=== PATIENT | female | born 1950 | race Caucasian/White ===

== ENCOUNTER 2018-02-17 19:57 | Inpatient (IN) ==
[2018-02-19] MEDS ORDERED: Dextrose Gel 15 GM/37.5 ML TUBE PO PRN ×2 (18:01)
[2018-02-19] MEDS ORDERED: *HR* Dextrose 50 % in Water (Syg) 50 ML SYRINGE IVP PRN (18:01)
[2018-02-19] MEDS ORDERED: D5% in Water 1,000 ML IVC PRN (18:01)
[2018-02-19] MEDS: Sennosides/Docusate Sodium TABLET PO PRN (20:52)
[2018-02-19] MEDS: Insulin LISPRO 300 UNITS/3 ML VIAL SQ SCH (20:53)
[2018-02-19] MEDS: CARBIDOPA PO SCH (20:54)
[2018-02-19] MEDS: LEVODOPA PO SCH (20:54)
[2018-02-19] MEDS: levETIRAcetam 250 MG TABLET PO SCH (20:54)
[2018-02-20] MEDS: *HR* Enoxaparin 40 MG/0.4 ML SYRINGE SQ SCH (05:36)
[2018-02-20 05:43] LABS: Basophils # 0.1 K/mcL (0.0-0.2); Basophils % 1.1 %; Eosinophils # 0.3 K/mcL (0.0-0.6); Eosinophils % 3.8 %; Hematocrit 34.8 % (35.3-44.9); Hemoglobin 11.7 g/dL (11.5-15.4); Immature Granulocytes % 0.5 % (0-4); Lymphocytes % 24.3 %; Mean Corpuscular HGB Conc 33.6 g/dL (31.6-35.5); Mean Corpuscular Hemoglobin 29.2 pg (28.0-33.3); Mean Corpuscular Volume 86.8 fL (83.0-100.0); Mean Platelet Volume 11.4 fL (9.4-12.4); Monocytes # 0.7 K/mcL (0.0-1.3); Monocytes % 8.2 %; Neutrophils # 5.2 K/mcL (1.6-8.9); Platelet Count 163 K/mcL (140-400); Red Blood Count 4.01 M/mcL (3.82-4.97); Red Cell Distribution Width 13.3 % (11.5-14.5); Segmented Neutrophils % 62.1 %
[2018-02-20 06:01] LABS: BUN/Creatinine Ratio 30 (6-26); Blood Urea Nitrogen 29 mg/dL (8-23); Calcium 9.5 mg/dL (8.6-10.3); Carbon Dioxide 24 mEq/L (23-29); Chloride 99 mEq/L (98-107); Glucose 376 mg/dL (70-105); Osmolality,Calculated 295 (280-300); Potassium 4.5 mEq/L (3.5-5.1); Sodium 132 mEq/L (136-145); eGFR For African Americans > 60 (> 60); eGFR For Non-African Americans 56 (> 60)
[2018-02-20 06:15] LABS: Thyroid Stimulating Hormone 1.756 mcIU/mL (0.340-5.600)
[2018-02-20] MEDS: Insulin NPH/REG 70/30 100 UNIT/ML (x5UNIT) SQ SCH (07:55)
[2018-02-20] MEDS: Insulin LISPRO 300 UNITS/3 ML VIAL SQ SCH ×4 (07:55→20:47)
[2018-02-20] MEDS: *HR* Metformin 500 MG TABLET PO SCH ×2 (07:58→16:43)
[2018-02-20] MEDS: Pregabalin 75 MG CAPSULE PO SCH (07:58)
[2018-02-20] MEDS: amLODIPine 5 MG TABLET PO SCH (07:58)
[2018-02-20] MEDS: Aspirin 81 MG TAB.CHEW PO SCH (07:58)
[2018-02-20] MEDS: levETIRAcetam 250 MG TABLET PO SCH ×2 (07:59→20:47)
[2018-02-20] MEDS: CARBIDOPA PO SCH ×2 (07:59→20:48)
[2018-02-20] MEDS: LEVODOPA PO SCH ×2 (07:59→20:48)
[2018-02-21] MEDS: *HR* Enoxaparin 40 MG/0.4 ML SYRINGE SQ SCH (06:07)
[2018-02-21 06:36] LABS: Basophils # 0.1 K/mcL (0.0-0.2); Eosinophils # 0.3 K/mcL (0.0-0.6); Eosinophils % 4.2 %; Hematocrit 35.8 % (35.3-44.9); Hemoglobin 12.2 g/dL (11.5-15.4); Immature Granulocytes % 0.6 % (0-4); Lymphocytes # 2.1 K/mcL (0.6-4.6); Lymphocytes % 26.1 %; Mean Corpuscular HGB Conc 34.1 g/dL (31.6-35.5); Mean Corpuscular Hemoglobin 29.5 pg (28.0-33.3); Mean Corpuscular Volume 86.5 fL (83.0-100.0); Monocytes # 0.6 K/mcL (0.0-1.3); Monocytes % 7.4 %; Neutrophils # 4.8 K/mcL (1.6-8.9); Platelet Count 178 K/mcL (140-400); Red Blood Count 4.14 M/mcL (3.82-4.97); Red Cell Distribution Width 13.3 % (11.5-14.5); Segmented Neutrophils % 60.7 %
[2018-02-21 06:56] LABS: BUN/Creatinine Ratio 33 (6-26); Blood Urea Nitrogen 30 mg/dL (8-23); Calcium 9.8 mg/dL (8.6-10.3); Carbon Dioxide 26 mEq/L (23-29); Chloride 99 mEq/L (98-107); Glucose 342 mg/dL (70-105); Osmolality,Calculated 296 (280-300); Potassium 4.2 mEq/L (3.5-5.1); Sodium 133 mEq/L (136-145); eGFR For African Americans > 60 (> 60); eGFR For Non-African Americans > 60 (> 60)
[2018-02-21] MEDS: Insulin LISPRO 300 UNITS/3 ML VIAL SQ SCH ×4 (08:00→20:40)
[2018-02-21] MEDS: *HR* Metformin 500 MG TABLET PO SCH ×2 (08:07→17:34)
[2018-02-21] MEDS: amLODIPine 5 MG TABLET PO SCH (08:07)
[2018-02-21] MEDS: Pregabalin 75 MG CAPSULE PO SCH (08:07)
[2018-02-21] MEDS: Aspirin 81 MG TAB.CHEW PO SCH (08:07)
[2018-02-21] MEDS: LEVODOPA PO SCH ×2 (08:08→20:41)
[2018-02-21] MEDS: CARBIDOPA PO SCH ×2 (08:08→20:41)
[2018-02-21] MEDS: levETIRAcetam 250 MG TABLET PO SCH ×2 (08:08→20:40)
[2018-02-21] MEDS: Insulin NPH/REG 70/30 100 UNIT/ML (x5UNIT) SQ SCH (11:28)
--- NOTE | 2018-02-21 14:06 | Internal Med Progress Note ---
Date of Encounter: 02/21/18 Time of Encounter: 14:04 - Assessment and plan (1) Diarrhea Current Visit: Yes Status: Acute Assessment and plan: Stool specimen sent for c-diff. will follow for results. Qualifiers: Diarrhea type: unspecified type Qualified Code(s): R19.7 - Diarrhea, unspecified (2) Cerebrovascular accident Current Visit: Yes Status: Acute Assessment and plan: PT/OT/ST to eval and treat. will follow progress. Qualifiers: CVA mechanism: unspecified Qualified Code(s): I63.9 - Cerebral infarction, unspecified (3) Diabetes Current Visit: Yes Status: Chronic Assessment and plan: controlled with current medicaitons. will monitor FSBS Qualifiers: Diabetes mellitus type: type 2 Diabetes mellitus termite treater helper insulin use: with long-term use Diabetes mellitus complication status: without complication Qualified Code(s): E11.9 - Type 2 diabetes mellitus without complications; Z79.4 - termite treater helper (current) use of insulin (4) HTN (hypertension) Current Visit: Yes Status: Chronic Assessment and plan: controlled with current meds. monitor BP Qualifiers: Hypertension type: essential hypertension Qualified Code(s): I10 - Essential (primary) hypertension - Time Spent With Patient less than 15 minutes - Subjective Interval history: Patient participating well with therapy. Max assist with transfers. Several episodes of diarrhea today. Will send stool specimen for C-diff. Denies fever , chills, nausea or vomiting. Denies abdominal pain. Denies pain. - Constitutional Vitals: Temp Pulse Resp BP Pulse Ox 98 F 78 16 107/61 95 02/21/18 07:51 02/21/18 07:51 02/21/18 07:51 02/21/18 07:51 02/21/18 07:51 General appearance: Present: cooperative, A&O X 3, pleasant, no acute distress, answers questions appropriately - Head Head exam: Present: atraumatic, normocephalic - Eye Eye exam: Present: PERRL, conjuntiva pink, sclera anicteric Pupils: Present: PERRL - Neck Neck exam general surgery: Present: supple, trachea midline. Absent: lymphadenopathy - Respiratory Respiratory exam: Present: CTAB. Absent: accessory muscle use, rales, rhonchi, wheezes - Cardiovascular Cardiovascular exam: Present: RRR, +S1, +S2. Absent: diastolic murmur, gallop, rubs, systolic murmur - GI/Abdominal GI/Abdominal exam: Present: normal bowel sounds, soft, no peritoneal signs. Absent: distended, tenderness - Extremities Exam Extremities exam: Present: warm, radial pulses palpable and symmetrical. Absent : calf tenderness, cyanotic, pedal edema - Neurological Exam Neurological exam: Present: CN II-XII intact, oriented X3, no focal deficits. Absent: pronater drift, facial droop, speech deficit - Skin Skin exam: Present: dry, intact Internal Medicine: Result - Labs CBC & Chem 7: 02/21/18 06:20 02/21/18 06:20 Labs: Short CBC 02/21/18 Range/Units 06:20 WBC 7.9 (4.3-11.1) K/mcL Hgb 12.2 (11.5-15.4) g/dL Hct 35.8 (35.3-44.9) % Plt Count 178 (140-400) K/mcL Neutrophils # 4.8 (1.6-8.9) K/mcL [facility] 02/21/18 06:20 Sodium 133 L Potassium 4.2 Chloride 99 Carbon Dioxide 26 BUN 30 H Creatinine 0.92 Glucose 342 H Calcium 9.8 - VTE Documentation of Mechanical Device: Graduated compression elastic hosiery Consult Discharge Plan - Plan Referrals: Quiana Mendez MD [Primary Care Provider] -
[2018-02-22] MEDS: *HR* Enoxaparin 40 MG/0.4 ML SYRINGE SQ SCH (05:06)
[2018-02-22] MEDS: Aspirin 81 MG TAB.CHEW PO SCH (08:40)
[2018-02-22] MEDS: levETIRAcetam 250 MG TABLET PO SCH ×2 (08:40→20:43)
[2018-02-22] MEDS: Pregabalin 75 MG CAPSULE PO SCH (08:40)
[2018-02-22] MEDS: *HR* Metformin 500 MG TABLET PO SCH ×2 (08:40→16:40)
[2018-02-22] MEDS: amLODIPine 5 MG TABLET PO SCH (08:40)
[2018-02-22] MEDS: CARBIDOPA PO SCH ×2 (08:43→20:43)
[2018-02-22] MEDS: LEVODOPA PO SCH ×2 (08:43→20:43)
[2018-02-22] MEDS: Insulin LISPRO 300 UNITS/3 ML VIAL SQ SCH ×4 (08:47→20:44)
[2018-02-22] MEDS: Insulin NPH/REG 70/30 100 UNIT/ML (x5UNIT) SQ SCH ×2 (08:48→16:40)
--- NOTE | 2018-02-22 13:01 | Internal Med Progress Note ---
Date of Encounter: 02/22/18 Time of Encounter: 12:59 - Assessment and plan (1) Diarrhea Current Visit: Yes Status: Acute Assessment and plan: resolved. neg c-diff. Qualifiers: Diarrhea type: unspecified type Qualified Code(s): R19.7 - Diarrhea, unspecified (2) Cerebrovascular accident Current Visit: Yes Status: Acute Assessment and plan: PT/OT/ST to eval and treat. will follow progress. Qualifiers: CVA mechanism: unspecified Qualified Code(s): I63.9 - Cerebral infarction, unspecified (3) Diabetes Current Visit: Yes Status: Chronic Assessment and plan: elevated glucose. will add 70/30 NPH coverage for evening dose in addition to am dose. will monitor FSBS Qualifiers: Diabetes mellitus type: type 2 Diabetes mellitus fdc insulin use: with fdc use Diabetes mellitus complication status: without complication Qualified Code(s): E11.9 - Type 2 diabetes mellitus without complications; Z79.4 - skilled nursing (current) use of insulin (4) HTN (hypertension) Current Visit: Yes Status: Chronic Assessment and plan: controlled with current meds. monitor BP Qualifiers: Hypertension type: essential hypertension Qualified Code(s): I10 - Essential (primary) hypertension - Time Spent With Patient 25 - 35 minutes - Subjective Interval history: Patient participating well with therapy. Max assist with transfers. no reports of diarrhea today. c-diff negative. Denies fever, chills, nausea or vomiting. Denies abdominal pain. Denies pain. glucose elevated to 300-400. will add in 70/30 insulin for evening dose. - Constitutional Vitals: Temp Pulse Resp BP Pulse Ox 98.0 F 77 16 158/88 95 02/22/18 07:30 02/22/18 07:30 02/22/18 07:30 02/22/18 07:30 02/22/18 07:30 General appearance: Present: cooperative, A&O X 3, pleasant, no acute distress, answers questions appropriately Exam: general weakness. - Head Head exam: Present: atraumatic, normocephalic - Eye Eye exam: Present: PERRL, conjuntiva pink, sclera anicteric Pupils: Present: PERRL - Neck Neck exam general surgery: Present: supple, trachea midline. Absent: lymphadenopathy - Respiratory Respiratory exam: Present: CTAB. Absent: accessory muscle use, rales, rhonchi, wheezes - Cardiovascular Cardiovascular exam: Present: RRR, +S1, +S2. Absent: diastolic murmur, gallop, rubs, systolic murmur - GI/Abdominal GI/Abdominal exam: Present: normal bowel sounds, soft, no peritoneal signs. Absent: distended, tenderness - Extremities Exam Extremities exam: Present: warm, radial pulses palpable and symmetrical. Absent : calf tenderness, cyanotic, pedal edema - Neurological Exam Neurological exam: Present: CN II-XII intact, oriented X3, no focal deficits. Absent: pronater drift, facial droop, speech deficit - Skin Skin exam: Present: dry, intact Internal Medicine: Result - Labs CBC & Chem 7: 02/21/18 06:20 02/21/18 06:20 - VTE Documentation of Mechanical Device: Graduated compression elastic hosiery Consult Discharge Plan - Plan Referrals: Quiana Mendez MD [Primary Care Provider] -
[2018-02-23] MEDS: *HR* Enoxaparin 40 MG/0.4 ML SYRINGE SQ SCH (06:27)
[2018-02-23] MEDS: amLODIPine 5 MG TABLET PO SCH (09:06)
[2018-02-23] MEDS: levETIRAcetam 250 MG TABLET PO SCH ×2 (09:06→22:58)
[2018-02-23] MEDS: Aspirin 81 MG TAB.CHEW PO SCH (09:06)
[2018-02-23] MEDS: LEVODOPA PO SCH (09:07)
[2018-02-23] MEDS: CARBIDOPA PO SCH (09:07)
[2018-02-23] MEDS: *HR* Metformin 500 MG TABLET PO SCH ×2 (09:07→17:22)
[2018-02-23] MEDS: Pregabalin 75 MG CAPSULE PO SCH (09:07)
[2018-02-23] MEDS: Insulin LISPRO 300 UNITS/3 ML VIAL SQ SCH ×4 (09:09→22:59)
[2018-02-23] MEDS: Insulin NPH/REG 70/30 100 UNIT/ML (x5UNIT) SQ SCH ×2 (09:11→17:23)
--- NOTE | 2018-02-23 13:15 | Internal Med Progress Note ---
Date of Encounter: 02/23/18 Time of Encounter: 13:13 - Assessment and plan (1) Cerebrovascular accident Current Visit: Yes Status: Acute Assessment and plan: No acute issues. Patient continues with slight left hemiparesis. Continues with mild confusion secondary to parkinsonian dementia. Patient being in restarted on her home medication of Sinemet. Patient to continue with physical therapy which she is reportedly progressing well with. We will continue with current plan of care Qualifiers: CVA mechanism: unspecified Qualified Code(s): I63.9 - Cerebral infarction, unspecified (2) Diabetes Current Visit: Yes Status: Chronic Assessment and plan: No acute issues. Patient's blood glucose has been elevated greater than 250 on multiple fingerstick readings. We will continue with sliding scale insulin coverage. We will review patient's long-acting coverage Qualifiers: Diabetes mellitus type: type 2 Diabetes mellitus longterm insulin use: with longterm use Diabetes mellitus complication status: without complication Qualified Code(s): E11.9 - Type 2 diabetes mellitus without complications; Z79.4 - long-term (current) use of insulin (3) HTN (hypertension) Current Visit: Yes Status: Chronic Assessment and plan: Vital signs stable. We will continue with current medications. Qualifiers: Hypertension type: essential hypertension Qualified Code(s): I10 - Essential (primary) hypertension - Time Spent With Patient less than 15 minutes - Subjective Interval history: Patient appears relaxed and currently denies any discomforts or shortness of breath. Patient slightly confused and has poor historian. - Constitutional Vitals: Temp Pulse Resp BP Pulse Ox 98 F 83 16 139/74 95 02/23/18 07:00 02/23/18 07:00 02/23/18 07:00 02/23/18 07:00 02/23/18 07:00 General appearance: Present: cooperative, A&O X 3, pleasant, no acute distress, answers questions appropriately - Head Head exam: Present: atraumatic, normocephalic - Eye Eye exam: Present: PERRL, conjuntiva pink, sclera anicteric Pupils: Present: PERRL - Neck Neck exam general surgery: Present: supple, trachea midline. Absent: lymphadenopathy - Respiratory Respiratory exam: Present: CTAB. Absent: accessory muscle use, rales, rhonchi, wheezes Additional comments: Lungs sounds are diminished to lower maurer, but otherwise clear to auscultation. Respiratory effort appears relaxed - Cardiovascular Cardiovascular exam: Present: RRR, +S1, +S2. Absent: diastolic murmur, gallop, rubs, systolic murmur - GI/Abdominal GI/Abdominal exam: Present: normal bowel sounds, soft, no peritoneal signs. Absent: distended, tenderness - Extremities Exam Extremities exam: Present: warm, radial pulses palpable and symmetrical. Absent : calf tenderness, cyanotic, pedal edema - Neurological Exam Neurological exam: Present: CN II-XII intact, oriented X3. Absent: pronater drift, facial droop, speech deficit Additional comments: Patient continues to have slight left hemiparesis. Left extremities at 4+/5 and right extremities at 5/5. Patient with slight confusion noted, but has a history of Parkinson dementia - Skin Skin exam: Present: dry, intact Internal Medicine: Result - Labs CBC & Chem 7: 02/21/18 06:20 02/21/18 06:20 - VTE Documentation of Mechanical Device: Graduated compression elastic hosiery Consult Discharge Plan - Plan Referrals: Quiana Mendez MD [Primary Care Provider] -
--- NOTE | 2018-02-23 20:58 | Physcial Medicine-Consult Note ---
Date of Encounter: 02/23/18 Time of Encounter: 20:00 Physical Medicine - AP (1) Cerebrovascular accident Status: Acute Assessment and plan: Good start in therapies Ambulation is mod to max short distance. Propels wheelchair 40'. Dysarthria but easy to understand. Poor endurance, processing, memory and impulse control. Continue therapies Pt is coughin alot during the day and I have a concern for silent aspiration. Will order Modified Barium Swallow ELOS 3-4 weeks. Code(s): I63.9 - Cerebral infarction, unspecified SNOMED Code(s): 134648762 Physical Medicine - HPI - Data of Consult Requesting Physician: Damien Lopez MD Primary Care Provider: Quiana Mendez - Consult Narrative History of present illness: Ms. Sharif is a 67 year old RH female admitted acute with old left CVA right hemiparesis and new right CVA left hemiparesis. difficulty getting out of bed at home. MRI showed right hemispheric infarct and deep white matter/centrum semiovale infarcts. Clinically, Pt. had left sided weakness and slurred speech. She was admitted and stabilized at [facility]. due to her bilateral CVA (one old with residual. one new) she has become dependent for mobility and self care and an admission for rehab is medically necessary. Currently, she complains of BLE numbness and weakness. She became left handed after her old CVA due to RUE weakness and poor motor control. She states her appetite is good and is focused on constipation although she has moved her bowels the last 4 days in a row. She denies pain. CC: Damien Lopez MD Past Med Surg Social Fam HX - Past Medical History Attestation: Yes The following information was validated with the patient. Medical history: CVA, diabetes, GERD, hyperlipidemia, hypertension, thyroid disease Psychiatric history: no psych history - Past Surgical History Surgical History: , cholecystectomy, hysterectomy - Social History Smoking Status: Never smoker Smokeless Tobacco Status: No Alcohol use: none Drug use: none - Family History Mother Adopted: No Age: 85 Family Member Ethnicity: Non- Living Status: Hx Family Cardiac Disorders: Yes Father Family Member Ethnicity: Non- Living Status: Hx Family Cardiac Disorders: Yes (Stroke) Hx Family Respiratory Disorders: No Hx Family Cancer: No Hx Family GI Disorders: No Hx Family Endocrine Disorder: Yes (DM) Hx Family Neuromuscular Disorders: No Hx Family Neurologic Disorders: Yes (CVA) Hx Family HEENT Disorders: No Hx Family Autoimmune Disorders: No Medications and Allergies Carvedilol 12.5 mg PO BID 09/14/15 [History] Clopidogrel Bisulfate [Plavix] 75 mg PO DAILY 09/14/15 [History] Losartan [Cozaar] 100 mg PO DAILY 09/14/15 [History] Pregabalin [Lyrica] 75 mg PO DAILY 09/14/15 [History] Simvastatin [Zocor] 40 mg PO HS 09/14/15 [History] metFORMIN [Glucophage] 1,000 mg PO BIDWM 09/14/15 [History] Aspirin 81 mg PO DAILY tab.chew 11/06/15 [Rx] Insulin NPH Hum/Reg Insulin Hm [Novolin 70-30 100 Unit/ml Vial] 45 unit SQ QPM 03/13/17 [History] Insulin NPH Hum/Reg Insulin Hm [Novolin 70-30 100 Unit/ml Vial] 55 unit SQ QAM 03/13/17 [History] LevETIRAcetam [Keppra] 1,000 mg PO BID 11/25/17 [History] Carbidopa/Levodopa [Carbidopa-Levo ER 25-100 Tab] 1 tab PO BID 02/14/18 [History ] Levothyroxine [Synthroid] 88 mcg PO 0630 #0 tablet 02/19/18 [Rx] Omeprazole [PriLOSEC] 20 mg PO 0630 #30 capsule. 02/19/18 [Rx] Sennosides/Docusate Sodium [Senna Plus] 1 each PO BID PRN #20 tablet 02/19/18 [ Rx] amLODIPine [Norvasc] 10 mg PO DAILY #30 tablet 02/19/18 [Rx] 3 Allergy/AdvReac Type Severity Reaction Status Date / Time levofloxacin [From Levaquin] AdvReac Nausea Verified 02/14/18 22:19 All systems: reviewed and no additional remarkable complaints except as stated ( See HPI and PMH) Physical Medicine - Exam - Constitutional Vitals: Temp Pulse Resp BP Pulse Ox 97.8 F 85 18 131/69 95 02/23/18 19:00 02/23/18 19:00 02/23/18 19:00 02/23/18 19:00 02/23/18 19:00 General appearance: average body habitus, cooperative, no acute distress - Head Head exam: Present: atraumatic, normocephalic - Eye Eye exam: Present: EOMI - ENT ENT exam: Present: mucous membranes moist Additional comments: Tongue protrudes midline. - Neck Neck exam: Present: full ROM - Respiratory Respiratory exam: Present: CTAB - Cardiovascular Cardiovascular exam: Present: RRR. Absent: diastolic murmur, gallop, rubs - GI/Abdominal GI/Abdominal exam: Present: normal bowel sounds, soft - Extremities Exam Extremities exam: Present: full ROM. Absent: calf tenderness, pedal edema Additional comments: Strength 4/5 throughout - Neurological Exam Neurological exam: Present: abnormal gait, alert, CN II-XII intact, oriented X3 - Psychiatric Psychiatric exam: Present: normal affect, normal mood - Skin Skin exam: Present: intact Physical Medicine - Results - Labs CBC & Chem 7: 02/21/18 06:20 02/21/18 06:20 Labs: Hyponatremia. Uncontrolled Diabetes. Consult Discharge Plan - Plan Referrals: Quiana Mendez MD [Primary Care Provider] -
[2018-02-23] MEDS: Carbidopa/Levodopa 25/100 TABLET PO SCH (22:58)
[2018-02-24] MEDS: *HR* Enoxaparin 40 MG/0.4 ML SYRINGE SQ SCH (05:15)
[2018-02-24] MEDS: Insulin LISPRO 300 UNITS/3 ML VIAL SQ SCH ×4 (09:19→21:40)
[2018-02-24] MEDS: Carbidopa/Levodopa 25/100 TABLET PO SCH ×2 (09:52→21:41)
[2018-02-24] MEDS: levETIRAcetam 250 MG TABLET PO SCH ×2 (09:52→21:41)
[2018-02-24] MEDS: amLODIPine 5 MG TABLET PO SCH (09:52)
[2018-02-24] MEDS: *HR* Metformin 500 MG TABLET PO SCH ×2 (09:52→17:39)
[2018-02-24] MEDS: Insulin NPH/REG 70/30 100 UNIT/ML (x5UNIT) SQ SCH ×2 (09:53→18:30)
[2018-02-24] MEDS: Pregabalin 75 MG CAPSULE PO SCH (09:53)
[2018-02-24] MEDS: Aspirin 81 MG TAB.CHEW PO SCH (09:53)
--- NOTE | 2018-02-24 16:03 | Internal Med Progress Note ---
Date of Encounter: 02/24/18 Time of Encounter: 16:01 - Assessment and plan (1) Cerebrovascular accident Current Visit: Yes Status: Acute Assessment and plan: PT/OT/ST to eval and treat. will follow progress. No new neurological deficits Qualifiers: CVA mechanism: unspecified Qualified Code(s): I63.9 - Cerebral infarction, unspecified (2) Diabetes Current Visit: Yes Status: Chronic Assessment and plan: elevated glucose. will add 70/30 NPH coverage for evening dose in addition to am dose. will monitor FSBS Qualifiers: Diabetes mellitus type: type 2 Diabetes mellitus terminal block assembler insulin use: with long-term use Diabetes mellitus complication status: without complication Qualified Code(s): E11.9 - Type 2 diabetes mellitus without complications; Z79.4 - care home (current) use of insulin (3) HTN (hypertension) Current Visit: Yes Status: Chronic Assessment and plan: controlled with current meds. monitor BP Qualifiers: Hypertension type: essential hypertension Qualified Code(s): I10 - Essential (primary) hypertension - Time Spent With Patient 25 - 35 minutes - Subjective Interval history: Patient participating well with therapy. Poor endurance and poor memory. Denies fever, chills, nausea or vomiting. Denies pain. - Constitutional Vitals: Temp Pulse Resp BP Pulse Ox 98.0 F 82 18 149/70 96 02/24/18 09:20 02/24/18 09:20 02/24/18 09:20 02/24/18 09:20 02/24/18 09:20 General appearance: Present: cooperative, A&O X 3, pleasant, no acute distress, answers questions appropriately Exam: Slight dysarthria - Head Head exam: Present: atraumatic, normocephalic - Eye Eye exam: Present: PERRL, conjuntiva pink, sclera anicteric Pupils: Present: PERRL - Neck Neck exam general surgery: Present: supple, trachea midline. Absent: lymphadenopathy - Respiratory Respiratory exam: Present: CTAB. Absent: accessory muscle use, rales, rhonchi, wheezes - Cardiovascular Cardiovascular exam: Present: RRR, +S1, +S2. Absent: diastolic murmur, gallop, rubs, systolic murmur - GI/Abdominal GI/Abdominal exam: Present: normal bowel sounds, soft, no peritoneal signs. Absent: distended, tenderness - Extremities Exam Extremities exam: Present: warm, radial pulses palpable and symmetrical. Absent : calf tenderness, cyanotic, pedal edema - Neurological Exam Neurological exam: Present: CN II-XII intact, oriented X3, no focal deficits. Absent: pronater drift, facial droop, speech deficit - Skin Skin exam: Present: dry, intact Internal Medicine: Result - Labs CBC & Chem 7: 02/21/18 06:20 02/21/18 06:20 - Impressions Impressions Videofluoroscopic Swallow 02/24/18 21:46 IMPRESSION: Swallowing mechanism grossly within normal limits without evidence of aspiration. Please see separate speech pathology report for full discussion of findings and recommendations. D/ / Shashank Santizo MD / Shashank Santizo MD Interpreting Provider: Shashank Santizo MD - VTE Documentation of Mechanical Device: Graduated compression elastic hosiery Consult Discharge Plan - Plan Referrals: Quiana Mendez MD [Primary Care Provider] -
[2018-02-24] MEDS: Sennosides/Docusate Sodium TABLET PO PRN (22:43)
[2018-02-25] MEDS: Sennosides/Docusate Sodium TABLET PO PRN (05:44)
[2018-02-25] MEDS: *HR* Enoxaparin 40 MG/0.4 ML SYRINGE SQ SCH (05:44)
[2018-02-25] MEDS: Pregabalin 75 MG CAPSULE PO SCH (09:47)
[2018-02-25] MEDS: amLODIPine 5 MG TABLET PO SCH (09:47)
[2018-02-25] MEDS: levETIRAcetam 250 MG TABLET PO SCH ×2 (09:47→23:55)
[2018-02-25] MEDS: Aspirin 81 MG TAB.CHEW PO SCH (09:48)
[2018-02-25] MEDS: *HR* Metformin 500 MG TABLET PO SCH ×2 (09:48→17:04)
[2018-02-25] MEDS: Carbidopa/Levodopa 25/100 TABLET PO SCH ×2 (09:48→23:54)
[2018-02-25] MEDS: Insulin LISPRO 300 UNITS/3 ML VIAL SQ SCH ×4 (09:57→23:57)
[2018-02-25] MEDS: Insulin NPH/REG 70/30 100 UNIT/ML (x5UNIT) SQ SCH ×2 (09:59→17:00)
--- NOTE | 2018-02-25 12:28 | Internal Med Progress Note ---
Date of Encounter: 02/25/18 Time of Encounter: 12:24 - Assessment and plan (1) Cerebrovascular accident Current Visit: Yes Status: Acute Qualifiers: CVA mechanism: unspecified Qualified Code(s): I63.9 - Cerebral infarction, unspecified (2) Diabetes Current Visit: Yes Status: Chronic Qualifiers: Diabetes mellitus type: type 2 Diabetes mellitus jail insulin use: with jail use Diabetes mellitus complication status: without complication Qualified Code(s): E11.9 - Type 2 diabetes mellitus without complications; Z79.4 - FDC (current) use of insulin (3) HTN (hypertension) Current Visit: Yes Status: Chronic Qualifiers: Hypertension type: essential hypertension Qualified Code(s): I10 - Essential (primary) hypertension - Subjective Interval history: Patient appears relaxed and currently denies any discomforts or shortness of breath. Patient slightly confused and has poor historian. Patient's glucose remains elevated with todays noon measurement being >500. Patient was medicated late for her morning scheduled 70/30 insulin. - Constitutional Vitals: Temp Pulse Resp BP Pulse Ox 97.7 F 78 16 140/67 94 02/25/18 08:34 02/25/18 08:34 02/25/18 08:34 02/25/18 08:34 02/25/18 08:34 General appearance: Present: cooperative, A&O X 3, pleasant, no acute distress, answers questions appropriately - Head Head exam: Present: atraumatic, normocephalic - Eye Eye exam: Present: PERRL, conjuntiva pink, sclera anicteric Pupils: Present: PERRL - Neck Neck exam general surgery: Present: supple, trachea midline. Absent: lymphadenopathy - Respiratory Respiratory exam: Present: CTAB. Absent: accessory muscle use, rales, rhonchi, wheezes - Cardiovascular Cardiovascular exam: Present: RRR, +S1, +S2. Absent: diastolic murmur, gallop, rubs, systolic murmur - GI/Abdominal GI/Abdominal exam: Present: normal bowel sounds, soft, no peritoneal signs. Absent: distended, tenderness - Extremities Exam Extremities exam: Present: warm, radial pulses palpable and symmetrical. Absent : calf tenderness, cyanotic, pedal edema Additional comments: Patient has bilateral rash type areas to bilateral feet and ankles, which appears to be healing. Area's are at the level of worn socks. - Neurological Exam Neurological exam: Present: CN II-XII intact, oriented X3. Absent: pronater drift, facial droop, speech deficit - Skin Skin exam: Present: dry, intact Internal Medicine: Result - Labs CBC & Chem 7: 02/21/18 06:20 02/21/18 06:20 - VTE Documentation of Mechanical Device: Graduated compression elastic hosiery Consult Discharge Plan - Plan Referrals: Quiana Mendez MD [Primary Care Provider] -
[2018-02-26] MEDS: *HR* Enoxaparin 40 MG/0.4 ML SYRINGE SQ SCH (05:20)
[2018-02-26] MEDS: *HR* Metformin 500 MG TABLET PO SCH ×2 (08:31→17:23)
[2018-02-26] MEDS: Aspirin 81 MG TAB.CHEW PO SCH (08:31)
[2018-02-26] MEDS: levETIRAcetam 250 MG TABLET PO SCH ×2 (08:31→21:50)
[2018-02-26] MEDS: amLODIPine 5 MG TABLET PO SCH (08:31)
[2018-02-26] MEDS: Carbidopa/Levodopa 25/100 TABLET PO SCH ×2 (08:31→21:51)
[2018-02-26] MEDS: Pregabalin 75 MG CAPSULE PO SCH (08:31)
[2018-02-26] MEDS: Insulin NPH/REG 70/30 100 UNIT/ML (x5UNIT) SQ SCH (08:32)
[2018-02-26] MEDS: Insulin LISPRO 300 UNITS/3 ML VIAL SQ SCH ×4 (08:43→21:50)
[2018-02-26] MEDS ORDERED: Insulin NPH/REG 70/30 300 UNIT/3 ML per UNIT SQ ONE ×2 (17:00)
[2018-02-27] MEDS: *HR* Enoxaparin 40 MG/0.4 ML SYRINGE SQ SCH (05:35)
[2018-02-27] MEDS: Insulin LISPRO 300 UNITS/3 ML VIAL SQ SCH ×4 (08:20→21:20)
[2018-02-27] MEDS: Carbidopa/Levodopa 25/100 TABLET PO SCH ×2 (09:26→21:20)
[2018-02-27] MEDS: Pregabalin 75 MG CAPSULE PO SCH (09:27)
[2018-02-27] MEDS: *HR* Metformin 500 MG TABLET PO SCH ×2 (09:27→16:53)
[2018-02-27] MEDS: Aspirin 81 MG TAB.CHEW PO SCH (09:27)
[2018-02-27] MEDS: levETIRAcetam 250 MG TABLET PO SCH ×2 (09:27→23:57)
[2018-02-27] MEDS: amLODIPine 5 MG TABLET PO SCH (09:28)
[2018-02-27] MEDS: Insulin NPH/REG 70/30 100 UNIT/ML (x5UNIT) SQ SCH ×2 (09:37→17:32)
[2018-02-27] MEDS: Melatonin 3 MG TABLET PO PRN (21:20)
[2018-02-28] MEDS: *HR* Enoxaparin 40 MG/0.4 ML SYRINGE SQ SCH (05:49)
[2018-02-28 06:01] LABS: Basophils # 0.1 K/mcL (0.0-0.2); Basophils % 1.2 %; Eosinophils # 0.4 K/mcL (0.0-0.6); Eosinophils % 5.5 %; Hematocrit 31.7 % (35.3-44.9); Hemoglobin 10.7 g/dL (11.5-15.4); Immature Granulocytes % 0.5 % (0-4); Lymphocytes # 2.8 K/mcL (0.6-4.6); Lymphocytes % 37.3 %; Mean Corpuscular HGB Conc 33.8 g/dL (31.6-35.5); Mean Corpuscular Hemoglobin 29.4 pg (28.0-33.3); Mean Corpuscular Volume 87.1 fL (83.0-100.0); Mean Platelet Volume 11.2 fL (9.4-12.4); Monocytes # 0.6 K/mcL (0.0-1.3); Neutrophils # 3.6 K/mcL (1.6-8.9); Platelet Count 161 K/mcL (140-400); Red Blood Count 3.64 M/mcL (3.82-4.97); Segmented Neutrophils % 47.5 %
[2018-02-28 06:19] LABS: BUN/Creatinine Ratio 28 (6-26); Blood Urea Nitrogen 23 mg/dL (8-23); Calcium 9.6 mg/dL (8.6-10.3); Carbon Dioxide 26 mEq/L (23-29); Chloride 105 mEq/L (98-107); Glucose 82 mg/dL (70-105); Osmolality,Calculated 291 (280-300); Potassium 4.3 mEq/L (3.5-5.1); Sodium 139 mEq/L (136-145); eGFR For African Americans > 60 (> 60); eGFR For Non-African Americans > 60 (> 60)
[2018-02-28] MEDS: Insulin LISPRO 300 UNITS/3 ML VIAL SQ SCH ×4 (09:15→20:44)
[2018-02-28] MEDS: levETIRAcetam 250 MG TABLET PO SCH ×2 (10:32→20:35)
[2018-02-28] MEDS: amLODIPine 5 MG TABLET PO SCH (10:33)
[2018-02-28] MEDS: *HR* Metformin 500 MG TABLET PO SCH ×2 (10:33→17:29)
[2018-02-28] MEDS: Pregabalin 75 MG CAPSULE PO SCH (10:33)
[2018-02-28] MEDS: Carbidopa/Levodopa 25/100 TABLET PO SCH ×2 (10:33→20:37)
[2018-02-28] MEDS: Aspirin 81 MG TAB.CHEW PO SCH (10:33)
[2018-02-28] MEDS: Insulin NPH/REG 70/30 100 UNIT/ML (x5UNIT) SQ SCH ×2 (10:43→17:33)
--- NOTE | 2018-02-28 15:46 | Internal Med Progress Note ---
Date of Encounter: 02/28/18 Time of Encounter: 15:45 - Assessment and plan (1) Cerebrovascular accident Current Visit: Yes Status: Acute Assessment and plan: PT/OT/ST to eval and treat. will follow progress. No new neurological deficits Qualifiers: CVA mechanism: unspecified Qualified Code(s): I63.9 - Cerebral infarction, unspecified (2) Diabetes Current Visit: Yes Status: Chronic Assessment and plan: elevated glucose. will add 70/30 NPH coverage for evening dose in addition to am dose. will monitor FSBS Qualifiers: Diabetes mellitus type: type 2 Diabetes mellitus long term care administrator insulin use: with detention use Diabetes mellitus complication status: without complication Qualified Code(s): E11.9 - Type 2 diabetes mellitus without complications; Z79.4 - custodial (current) use of insulin (3) HTN (hypertension) Current Visit: Yes Status: Chronic Assessment and plan: controlled with current meds. monitor BP Qualifiers: Hypertension type: essential hypertension Qualified Code(s): I10 - Essential (primary) hypertension (4) Slow transit constipation Current Visit: Yes Status: Acute Assessment and plan: Mag citrate today. Will follow for results. - Time Spent With Patient less than 15 minutes - Subjective Interval history: Patient participating well with therapy. States bowels have not moved in the past few days. Will have dose of mag citrate today. Denies fever, chills, nausea or vomiting. Denies pain. - Constitutional Vitals: Temp Pulse Resp BP Pulse Ox 97.6 F 68 16 117/71 96 02/28/18 07:26 02/28/18 07:26 02/28/18 07:26 02/28/18 07:26 02/28/18 07:26 General appearance: Present: cooperative, A&O X 3, pleasant, no acute distress, answers questions appropriately - Head Head exam: Present: atraumatic, normocephalic - Eye Eye exam: Present: PERRL, conjuntiva pink, sclera anicteric Pupils: Present: PERRL - Neck Neck exam general surgery: Present: supple, trachea midline. Absent: lymphadenopathy - Respiratory Respiratory exam: Present: CTAB. Absent: accessory muscle use, rales, rhonchi, wheezes - Cardiovascular Cardiovascular exam: Present: RRR, +S1, +S2. Absent: diastolic murmur, gallop, rubs, systolic murmur - GI/Abdominal GI/Abdominal exam: Present: normal bowel sounds, soft, no peritoneal signs. Absent: distended, tenderness - Extremities Exam Extremities exam: Present: warm, radial pulses palpable and symmetrical. Absent : calf tenderness, cyanotic, pedal edema - Neurological Exam Neurological exam: Present: CN II-XII intact, oriented X3, no focal deficits. Absent: pronater drift, facial droop, speech deficit - Skin Skin exam: Present: dry, intact Internal Medicine: Result - Labs CBC & Chem 7: 02/28/18 05:20 02/28/18 05:20 Labs: Short CBC 02/28/18 Range/Units 05:20 WBC 7.5 (4.3-11.1) K/mcL Hgb 10.7 L D (11.5-15.4) g/dL Hct 31.7 L (35.3-44.9) % Plt Count 161 (140-400) K/mcL Neutrophils # 3.6 (1.6-8.9) K/mcL BMP 02/28/18 05:20 Sodium 139 Potassium 4.3 Chloride 105 Carbon Dioxide 26 BUN 23 Creatinine 0.83 Glucose 82 Calcium 9.6 - VTE Documentation of Mechanical Device: Graduated compression elastic hosiery Consult Discharge Plan - Plan Referrals: Quiana Mendez MD [Primary Care Provider] -
--- NOTE | 2018-02-28 18:17 | Physical Med Progress Note ---
Date of Encounter: 02/28/18 Time of Encounter: 17:00 Assessment and Plan (1) Cerebrovascular accident Current Visit: Yes Status: Acute Assessment and plan: Slow progress. Transfers improving Continue rehab. EDC TBD Add senokot for constipation. Qualifiers: CVA mechanism: unspecified Qualified Code(s): I63.9 - Cerebral infarction, unspecified Physical Medicine-PN: Subj Interval history: C/O constipation. no BM in 48hrs. - Constitutional Vitals: Vital Signs Temp Pulse Resp BP Pulse Ox 02/28/18 07:26 97.6 F 68 16 117/71 96 02/27/18 18:59 97.6 F 68 16 124/68 97 Intake and Output 02/28/18 02/28/18 02/28/18 07:59 15:59 23:59 Intake Total 625 / 625 720 / 720 Output Total 250 / 250 Balance 625 / 625 470 / 470 Intake: Oral 625 / 625 720 / 720 Output: Urine 250 / 250 Other: Meal Breakfast Percent of Meal Consumed 100% # Urine Diapers 1 Weight 78.18 kg Blood Glucose* 121 397 224 Patient Weight 02/28/18 23:59 Weight 78.18 kg - Extremities Exam Additional comments: 4 Ext strength good.4-/5 Balance and lowerext. control poor. No CCE - Neurological Exam Additional comments: Bilateral pronator drift. Sensation intact. Oriented to month but not place or year. - Psychiatric Psychiatric exam: Present: normal affect, normal mood - Skin Additional comments: Intact. Physical Medicine-PN: Obj Data - Labs CBC & Chem 7: 02/28/18 05:20 02/28/18 05:20 Labs: Laboratory Results - last 24 hr 02/27/18 02/27/18 02/27/18 07:41 11:28 21:12 WBC RBC Hgb Hct MCV MCH MCHC RDW Plt Count MPV Immature Gran % Seg Neutrophils % Lymphocytes % Monocytes % Eosinophils % Basophils % Neutrophils # Lymphocytes # Monocytes # Eosinophils # Basophils # Sodium Potassium Chloride Carbon Dioxide BUN Creatinine Est GFR ( Amer) Est GFR (Non-Af Amer) BUN/Creatinine Ratio Glucose POC Glucose 298 H 319 H 154 H Calculated Osmolality Calcium 02/28/18 02/28/18 02/28/18 05:20 05:20 07:28 WBC 7.5 RBC 3.64 L Hgb 10.7 L D Hct 31.7 L MCV 87.1 MCH 29.4 MCHC 33.8 RDW 13.0 Plt Count 161 MPV 11.2 Immature Gran % 0.5 Seg Neutrophils % 47.5 Lymphocytes % 37.3 Monocytes % 8.0 Eosinophils % 5.5 Basophils % 1.2 Neutrophils # 3.6 Lymphocytes # 2.8 Monocytes # 0.6 Eosinophils # 0.4 Basophils # 0.1 Sodium 139 Potassium 4.3 Chloride 105 Carbon Dioxide 26 BUN 23 Creatinine 0.83 Est GFR ( Amer) > 60 Est GFR (Non-Af Amer) > 60 BUN/Creatinine Ratio 28 H Glucose 82 POC Glucose 121 H Calculated Osmolality 291 Calcium 9.6 02/28/18 02/28/18 02/28/18 11:38 11:41 16:39 WBC RBC Hgb Hct MCV MCH MCHC RDW Plt Count MPV Immature Gran % Seg Neutrophils % Lymphocytes % Monocytes % Eosinophils % Basophils % Neutrophils # Lymphocytes # Monocytes # Eosinophils # Basophils # Sodium Potassium Chloride Carbon Dioxide BUN Creatinine Est GFR ( Amer) Est GFR (Non-Af Amer) BUN/Creatinine Ratio Glucose POC Glucose 410 H* 397 H 224 H Calculated Osmolality Calcium Anemia, uncontrolled DM - VTE Documentation of Mechanical Device: Graduated compression elastic hosiery Consult Discharge Plan - Plan Referrals: Quiana Mendez MD [Primary Care Provider] -
[2018-02-28] MEDS: Sennosides 8.6 MG TABLET PO SCH (20:36)
[2018-03-01] MEDS: *HR* Enoxaparin 40 MG/0.4 ML SYRINGE SQ SCH (06:12)
[2018-03-01] MEDS: Insulin LISPRO 300 UNITS/3 ML VIAL SQ SCH ×4 (08:18→20:44)
[2018-03-01] MEDS: levETIRAcetam 250 MG TABLET PO SCH ×2 (08:55→20:39)
[2018-03-01] MEDS: Aspirin 81 MG TAB.CHEW PO SCH (08:55)
[2018-03-01] MEDS: Carbidopa/Levodopa 25/100 TABLET PO SCH ×2 (08:56→20:40)
[2018-03-01] MEDS: Insulin NPH/REG 70/30 100 UNIT/ML (x5UNIT) SQ SCH ×2 (08:56→16:43)
[2018-03-01] MEDS: Pregabalin 75 MG CAPSULE PO SCH (08:56)
[2018-03-01] MEDS: amLODIPine 5 MG TABLET PO SCH (08:56)
[2018-03-01] MEDS: *HR* Metformin 500 MG TABLET PO SCH ×2 (08:56→16:44)
--- NOTE | 2018-03-01 11:14 | Internal Med Progress Note ---
Date of Encounter: 03/01/18 Time of Encounter: 11:12 - Assessment and plan (1) Cerebrovascular accident Current Visit: Yes Status: Acute Assessment and plan: PT/OT/ST to eval and treat. will follow progress. No new neurological deficits Qualifiers: CVA mechanism: unspecified Qualified Code(s): I63.9 - Cerebral infarction, unspecified (2) Diabetes Current Visit: Yes Status: Chronic Assessment and plan: Controlled with current medication. will monitor FSBS Qualifiers: Diabetes mellitus type: type 2 Diabetes mellitus half-way insulin use: with terminal operations supervisor use Diabetes mellitus complication status: without complication Qualified Code(s): E11.9 - Type 2 diabetes mellitus without complications; Z79.4 - skilled nursing (current) use of insulin (3) HTN (hypertension) Current Visit: Yes Status: Chronic Assessment and plan: controlled with current meds. monitor BP Qualifiers: Hypertension type: essential hypertension Qualified Code(s): I10 - Essential (primary) hypertension (4) Slow transit constipation Current Visit: Yes Status: Acute Assessment and plan: Improved after mag citrate. - Time Spent With Patient less than 15 minutes - Subjective Interval history: Reports 2 large bowel movements today. After having mag citrate. Patient participating well with therapy. Denies fever, chills, nausea or vomiting. Denies pain. Maintaining appetite and hydration. - Constitutional Vitals: Temp Pulse Resp BP Pulse Ox 98.4 F 70 16 133/68 96 03/01/18 07:07 03/01/18 07:07 03/01/18 07:07 03/01/18 07:07 03/01/18 07:07 General appearance: Present: cooperative, A&O X 3, pleasant, no acute distress, answers questions appropriately Exam: Gen. weakness - Head Head exam: Present: atraumatic, normocephalic - Eye Eye exam: Present: PERRL, conjuntiva pink, sclera anicteric Pupils: Present: PERRL - Neck Neck exam general surgery: Present: supple, trachea midline. Absent: lymphadenopathy - Respiratory Respiratory exam: Present: CTAB. Absent: accessory muscle use, rales, rhonchi, wheezes - Cardiovascular Cardiovascular exam: Present: RRR, +S1, +S2. Absent: diastolic murmur, gallop, rubs, systolic murmur - GI/Abdominal GI/Abdominal exam: Present: normal bowel sounds, soft, no peritoneal signs. Absent: distended, tenderness - Extremities Exam Extremities exam: Present: warm, radial pulses palpable and symmetrical. Absent : calf tenderness, cyanotic, pedal edema - Neurological Exam Neurological exam: Present: CN II-XII intact, oriented X3, no focal deficits. Absent: pronater drift, facial droop, speech deficit - Skin Skin exam: Present: dry, intact Internal Medicine: Result - Labs CBC & Chem 7: 02/28/18 05:20 02/28/18 05:20 - VTE Documentation of Mechanical Device: Graduated compression elastic hosiery Consult Discharge Plan - Plan Referrals: Quiana Mendez MD [Primary Care Provider] -
[2018-03-01] MEDS: Sennosides 8.6 MG TABLET PO SCH (20:49)
[2018-03-01] MEDS: traMADol 50 MG TABLET PO PRN (22:38)
[2018-03-02] MEDS: *HR* Enoxaparin 40 MG/0.4 ML SYRINGE SQ SCH (05:48)
[2018-03-02] MEDS: Insulin LISPRO 300 UNITS/3 ML VIAL SQ SCH ×4 (08:05→20:38)
[2018-03-02] MEDS: levETIRAcetam 250 MG TABLET PO SCH ×2 (08:06→19:54)
[2018-03-02] MEDS: Insulin NPH/REG 70/30 100 UNIT/ML (x5UNIT) SQ SCH ×2 (08:06→17:05)
[2018-03-02] MEDS: Aspirin 81 MG TAB.CHEW PO SCH (08:06)
[2018-03-02] MEDS: amLODIPine 5 MG TABLET PO SCH (08:07)
[2018-03-02] MEDS: Carbidopa/Levodopa 25/100 TABLET PO SCH ×2 (08:07→19:54)
[2018-03-02] MEDS: *HR* Metformin 500 MG TABLET PO SCH ×2 (08:07→17:07)
[2018-03-02] MEDS: Pregabalin 75 MG CAPSULE PO SCH (08:08)
--- NOTE | 2018-03-02 09:37 | Internal Med Progress Note ---
Date of Encounter: 03/02/18 Time of Encounter: 09:31 - Assessment and plan (1) Cerebrovascular accident Current Visit: Yes Status: Acute Assessment and plan: PT/OT/ST to eval and treat. will follow progress. No new neurological deficits Qualifiers: CVA mechanism: unspecified Qualified Code(s): I63.9 - Cerebral infarction, unspecified (2) Diabetes Current Visit: Yes Status: Chronic Assessment and plan: Controlled with current medication. will monitor FSBS Qualifiers: Diabetes mellitus type: type 2 Diabetes mellitus correction insulin use: with intermediate school teacher use Diabetes mellitus complication status: without complication Qualified Code(s): E11.9 - Type 2 diabetes mellitus without complications; Z79.4 - shelter (current) use of insulin (3) HTN (hypertension) Current Visit: Yes Status: Chronic Assessment and plan: controlled with current meds. monitor BP Qualifiers: Hypertension type: essential hypertension Qualified Code(s): I10 - Essential (primary) hypertension (4) Nausea Current Visit: Yes Status: Acute Assessment and plan: zofran 4 mg now. will monitor for effectiveness. - Time Spent With Patient less than 15 minutes - Subjective Interval history: Patient participating well with therapy. Complaining of nausea this morning. No vomiting. Will order Zofran .Denies fever, chills. Denies pain. Maintaining appetite and hydration. - Constitutional Vitals: Temp Pulse Resp BP Pulse Ox 98.1 F 75 16 137/69 95 03/02/18 07:15 03/02/18 07:15 03/02/18 07:15 03/02/18 07:15 03/02/18 07:15 General appearance: Present: cooperative, A&O X 3, pleasant, no acute distress, answers questions appropriately - Head Head exam: Present: atraumatic, normocephalic - Eye Eye exam: Present: PERRL, conjuntiva pink, sclera anicteric Pupils: Present: PERRL - Neck Neck exam general surgery: Present: supple, trachea midline. Absent: lymphadenopathy - Respiratory Respiratory exam: Present: CTAB. Absent: accessory muscle use, rales, rhonchi, wheezes - Cardiovascular Cardiovascular exam: Present: RRR, +S1, +S2. Absent: diastolic murmur, gallop, rubs, systolic murmur - GI/Abdominal GI/Abdominal exam: Present: normal bowel sounds, soft, no peritoneal signs. Absent: distended, tenderness - Extremities Exam Extremities exam: Present: warm, radial pulses palpable and symmetrical. Absent : calf tenderness, cyanotic, pedal edema - Neurological Exam Neurological exam: Present: CN II-XII intact, oriented X3, no focal deficits. Absent: pronater drift, facial droop, speech deficit - Skin Skin exam: Present: dry, intact Internal Medicine: Result - Labs CBC & Chem 7: 02/28/18 05:20 02/28/18 05:20 - VTE Documentation of Mechanical Device: Graduated compression elastic hosiery Consult Discharge Plan - Plan Referrals: Quiana Mendez MD [Primary Care Provider] -
[2018-03-02] MEDS: Ondansetron ODT 4 MG TAB.RAPDIS SL PRN (09:49)
[2018-03-02] MEDS: Melatonin 3 MG TABLET PO PRN (19:54)
[2018-03-02] MEDS: Sennosides 8.6 MG TABLET PO SCH (19:54)
[2018-03-03] MEDS: *HR* Enoxaparin 40 MG/0.4 ML SYRINGE SQ SCH (05:19)
[2018-03-03] MEDS: amLODIPine 5 MG TABLET PO SCH (10:13)
[2018-03-03] MEDS: Carbidopa/Levodopa 25/100 TABLET PO SCH ×2 (10:14→19:56)
[2018-03-03] MEDS: Pregabalin 75 MG CAPSULE PO SCH (10:14)
[2018-03-03] MEDS: Aspirin 81 MG TAB.CHEW PO SCH (10:14)
[2018-03-03] MEDS: levETIRAcetam 250 MG TABLET PO SCH ×2 (10:14→19:56)
[2018-03-03] MEDS: Insulin LISPRO 300 UNITS/3 ML VIAL SQ SCH ×4 (10:15→20:41)
[2018-03-03] MEDS: *HR* Metformin 500 MG TABLET PO SCH ×2 (10:15→17:04)
[2018-03-03] MEDS: Insulin NPH/REG 70/30 100 UNIT/ML (x5UNIT) SQ SCH ×2 (10:46→17:44)
--- NOTE | 2018-03-03 10:53 | Internal Med Progress Note ---
Date of Encounter: 02/20/18 Time of Encounter: 21:45 - Assessment and plan (1) Cerebrovascular accident Current Visit: Yes Status: Acute Assessment and plan: We will resume therapies as planned. No acute issues. Qualifiers: CVA mechanism: unspecified Qualified Code(s): I63.9 - Cerebral infarction, unspecified (2) Diabetes Current Visit: Yes Status: Chronic Assessment and plan: Clinically stable though some elevated readings. Will continue to follow and use sliding scale insulin. Qualifiers: Diabetes mellitus type: type 2 Diabetes mellitus intermediate manager insulin use: with group home use Diabetes mellitus complication status: without complication Qualified Code(s): E11.9 - Type 2 diabetes mellitus without complications; Z79.4 - buttermaker (current) use of insulin (3) HTN (hypertension) Current Visit: Yes Status: Chronic Assessment and plan: Clinically stable. We will continue home regimen and follow. Qualifiers: Hypertension type: essential hypertension Qualified Code(s): I10 - Essential (primary) hypertension (4) HLD (hyperlipidemia) Current Visit: No Status: Chronic Assessment and plan: Clinically stable. We will continue home regimen and follow. Qualifiers: Hyperlipidemia type: pure hypercholesterolemia Qualified Code(s): E78.00 - Pure hypercholesterolemia, unspecified; E78.0 - Pure hypercholesterolemia (5) Acute on chronic renal insufficiency Current Visit: No Status: Acute - Subjective Interval history: Patient is without complaint. No acute issues. Has been progressing mostly day and is willing to undergo therapies, tomorrow. Patient has no complaint of chest discomfort, dyspnea, orthopnea, palpitations, nausea or vomiting, constipation or diarrhea, other changes in bowel habits, difficulty with urination, rash or itching, or other new complaints, except as mentioned above. Review of systems is otherwise negative. - Constitutional Vitals: Temp Pulse Resp BP Pulse Ox General appearance: Present: cooperative, pleasant, answers questions appropriately Exam: Examination: (Except as mentioned above): General: In no apparent distress. Alert and oriented 3. Nondiaphoretic. Head: Atraumatic and normocephalic. Respiratory: No use of accessory muscles. Lungs are clear throughout. Normal airflow. Cardiovascular: Regular rate and rhythm without murmur appreciated. Abdomen: Bowel sounds are normal. No hepatosplenomegaly mass or tenderness appreciated. Obese and therefore difficult to palpate deeply. Extremities: No cyanosis clubbing or edema. Skin: Warm and non-diaphoretic with no new lesions noted. Mild hemiparesis, as before. Internal Medicine: Result - Labs CBC & Chem 7: 02/28/18 05:20 02/28/18 05:20 - VTE Documentation of Mechanical Device: Graduated compression elastic hosiery Consult Discharge Plan - Plan Referrals: Quiana Mendez MD [Primary Care Provider] -
--- NOTE | 2018-03-03 11:00 | Internal Med Progress Note ---
Date of Encounter: 03/03/18 Time of Encounter: 10:57 - Assessment and plan (1) Cerebrovascular accident Current Visit: Yes Status: Acute Assessment and plan: No acute issues. Patient continues with slight left hemiparesis, which has improved. Continues with mild confusion secondary to parkinsonian dementia. Patient to continue with physical therapy which she is reportedly progressing well with. We will continue with current plan of care Qualifiers: Qualified Code(s): I63.9 - Cerebral infarction, unspecified (2) Diabetes Current Visit: Yes Status: Chronic Assessment and plan: No acute issues. Patient's blood glucose has improved over the last week on fingerstick readings. We will continue with sliding scale insulin coverage. We will review patient's long-acting coverage Qualifiers: Qualified Code(s): E11.9 - Type 2 diabetes mellitus without complications; Z79.4 - alf (current) use of insulin (3) HTN (hypertension) Current Visit: Yes Status: Chronic Assessment and plan: Vital signs stable. We will continue with current medications. Qualifiers: Qualified Code(s): I10 - Essential (primary) hypertension - Time Spent With Patient less than 15 minutes - Subjective Interval history: Patient appears relaxed and currently denies any discomforts or shortness of breath. Patient slightly confused and has poor historian. - Constitutional Vitals: Temp Pulse Resp BP Pulse Ox 98.7 F 68 18 118/50 97 03/03/18 07:22 03/03/18 07:22 03/03/18 07:22 03/03/18 07:22 03/03/18 07:22 General appearance: Present: cooperative, A&O X 2, pleasant, answers questions appropriately Exam: Patient is confused to time. - Head Head exam: Present: atraumatic, normocephalic - Eye Eye exam: Present: PERRL, conjuntiva pink, sclera anicteric Pupils: Present: PERRL - Neck Neck exam general surgery: Present: supple, trachea midline. Absent: lymphadenopathy - Respiratory Respiratory exam: Present: CTAB. Absent: accessory muscle use, rales, rhonchi, wheezes - Cardiovascular Cardiovascular exam: Present: RRR, +S1, +S2. Absent: diastolic murmur, gallop, rubs, systolic murmur - GI/Abdominal GI/Abdominal exam: Present: normal bowel sounds, soft, no peritoneal signs. Absent: distended, tenderness - Extremities Exam Extremities exam: Present: warm, radial pulses palpable and symmetrical. Absent : calf tenderness, cyanotic, pedal edema - Neurological Exam Neurological exam: Present: CN II-XII intact, oriented X3. Absent: pronater drift, facial droop, speech deficit Additional comments: Patient continues with left hemiparesis. RE 5/5 and LE +4/5 for MS. Remains slightly confused, but history of dementia - Skin Skin exam: Present: dry, intact Internal Medicine: Result - Labs CBC & Chem 7: 02/28/18 05:20 02/28/18 05:20 - VTE Documentation of Mechanical Device: Graduated compression elastic hosiery Consult Discharge Plan - Plan Referrals: Quiana Mendez MD [Primary Care Provider] -
--- NOTE | 2018-03-03 11:13 | Internal Med History&Physical ---
Date of Encounter: 02/20/18 Time of Encounter: 21:50 Assessment and Plan (1) Cerebrovascular accident Current visit: Yes Status: Acute We will use occupational, speech, physical therapy and consult physical medicine. Will begin therapies tomorrow. Qualifiers: CVA mechanism: unspecified Qualified Code(s): I63.9 - Cerebral infarction, unspecified (2) Diabetes Current visit: Yes Status: Chronic We will continue current regimen as at home, discussing medications with family. Will use sliding scale insulin, as well. Qualifiers: Diabetes mellitus type: type 2 Diabetes mellitus senior living insulin use: with intermodal owner operator truck driver use Diabetes mellitus complication detail: with autonomic neuropathy Qualified Code(s): E11.43 - Type 2 diabetes mellitus with diabetic autonomic (poly)neuropathy; Z79.4 - jail (current) use of insulin (3) HTN (hypertension) Current visit: Yes Status: Chronic Clinically stable. Will use home regimen and follow periodically. Qualifiers: Hypertension type: essential hypertension Qualified Code(s): I10 - Essential (primary) hypertension (4) HLD (hyperlipidemia) Current visit: No Status: Chronic Clinically stable. We will continue home regimen and follow. Qualifiers: Hyperlipidemia type: pure hypercholesterolemia Qualified Code(s): E78.00 - Pure hypercholesterolemia, unspecified; E78.0 - Pure hypercholesterolemia (5) Acute on chronic renal insufficiency Current visit: No Status: Acute We will follow with laboratory and avoid medications that might worsen renal insufficiency. (6) Partial seizure disorder Current visit: No Status: Chronic Poorly described per patient. We will keep her in seizure precautions. (7) Parkinsonism Current visit: Yes Status: Acute This is poorly described per patient but she is on carbidopa levodopa and will continue. Follow. Qualifiers: Parkinsonism type: unspecified Qualified Code(s): G20 - Parkinson's disease (8) Diarrhea Current visit: Yes Status: Acute This is apparently been going on for several days but resolving, per patient. Associated with nausea but this has improved. Qualifiers: Diarrhea type: unspecified type Qualified Code(s): R19.7 - Diarrhea, unspecified (9) Hypothyroidism Current visit: Yes Status: Acute Per home medications, only. Will follow. Clinically stable. Qualifiers: Hypothyroidism type: unspecified Qualified Code(s): E03.9 - Hypothyroidism , unspecified Internal Medicine - H&P: HPI Chief complaint: Recent stroke with weakness. Admitted From: Hospital to Hospital Transfer Plans for Post Hospital Care: Home History of present illness: For schedule and/or computer reasons, this note is a late entry. Patient was seen on the date of the initial note. Ms. Sharif is a 67 year old female with history of CVA with mild residual weakness, atypical seizures treated with Keppra, hypothyroidism GERD treated with a PPI, vascular parkinsonism, poorly characterized congestive heart failure , renal insufficiency, diabetes type II with neuropathy, hypertension, and hyperlipidemia who had a recent stroke. Apparently, on February 15, 2018, she had a problem with her legs giving out. History is obtained from the record and from patient. She was taken to [facility] and was treated for stroke there. While there, she had nausea and occasional vomiting. She also had 4 episodes of diarrhea the first day and 2-4 episodes for several days after but was not tested for C. difficile. She is transferred here for therapies, after her stroke and to return her to full functional activity. Medications are reviewed with patient but she is frequently not very aware of what medication she is taking. Most of her medications information comes from transfer records. She lives at home with , does not smoke, does not drink alcohol. She is not actively working. She has not had a seizure for several years. She has her own teeth and has several mandibular teeth that are in poor repair but otherwise, no acute review of systems issues, except as above. Patient has no complaint of chest discomfort, dyspnea, orthopnea, palpitations, nausea or vomiting, constipation or diarrhea, other changes in bowel habits, difficulty with urination, rash or itching, or other new complaints, except as mentioned above. Review of systems is otherwise negative. Past Med Surg Social Fam HX - Past Medical History Medical history: CVA, diabetes, GERD, hyperlipidemia, hypertension, thyroid disease Psychiatric history: no psych history - Past Surgical History Surgical History: , cholecystectomy, hysterectomy - Social History Smoking Status: Never smoker Smokeless Tobacco Status: No Alcohol use: none Drug use: none - Family History Mother Adopted: No Age: 85 Family Member Ethnicity: Non- Living Status: Hx Family Cardiac Disorders: Yes Father Family Member Ethnicity: Non- Living Status: Hx Family Cardiac Disorders: Yes (Stroke) Hx Family Respiratory Disorders: No Hx Family Cancer: No Hx Family GI Disorders: No Hx Family Endocrine Disorder: Yes (DM) Hx Family Neuromuscular Disorders: No Hx Family Neurologic Disorders: Yes (CVA) Hx Family HEENT Disorders: No Hx Family Autoimmune Disorders: No Internal Medicine - H&P: Meds Carvedilol 12.5 mg PO BID 09/14/15 [History] Clopidogrel Bisulfate [Plavix] 75 mg PO DAILY 09/14/15 [History] Losartan [Cozaar] 100 mg PO DAILY 09/14/15 [History] Pregabalin [Lyrica] 75 mg PO DAILY 09/14/15 [History] Simvastatin [Zocor] 40 mg PO HS 09/14/15 [History] metFORMIN [Glucophage] 1,000 mg PO BIDWM 09/14/15 [History] Aspirin 81 mg PO DAILY tab.chew 11/06/15 [Rx] Insulin NPH Hum/Reg Insulin Hm [Novolin 70-30 100 Unit/ml Vial] 45 unit SQ QPM 03/13/17 [History] Insulin NPH Hum/Reg Insulin Hm [Novolin 70-30 100 Unit/ml Vial] 55 unit SQ QAM 03/13/17 [History] LevETIRAcetam [Keppra] 1,000 mg PO BID 11/25/17 [History] Carbidopa/Levodopa [Carbidopa-Levo ER 25-100 Tab] 1 tab PO BID 02/14/18 [History ] Levothyroxine [Synthroid] 88 mcg PO 0630 #0 tablet 02/19/18 [Rx] Omeprazole [PriLOSEC] 20 mg PO 0630 #30 capsule. 02/19/18 [Rx] Sennosides/Docusate Sodium [Senna Plus] 1 each PO BID PRN #20 tablet 02/19/18 [ Rx] amLODIPine [Norvasc] 10 mg PO DAILY #30 tablet 02/19/18 [Rx] 3 Allergy/AdvReac Type Severity Reaction Status Date / Time levofloxacin [From Levaquin] AdvReac Nausea Verified 02/14/18 22:19 All Systems PM: A 10-system review of systems was performed and is negative for pertinent findings except as documented above in the HPI. - Constitutional Vitals: Temp Pulse Resp BP Pulse Ox Vitals were as noted by nursing. General appearance: Present: cooperative, pleasant, answers questions appropriately Exam: Examination: (Except as mentioned above): General: In no apparent distress, alert and oriented 3. Head: Atraumatic and normocephalic. Eyes: Extraocular muscles are intact, pupils equal round and reactive to light and accommodation. Sclerae anicteric. Ears: External ears are normal to inspection and hearing is grossly normal. Nose: Patent without lesion noted. Mouth: No intraoral lesions seen. Dentition is noted to have several mandibular teeth which are in poor repair, anteriorly. Neck: Supple with trachea midline. There is no thyromegaly or adenopathy and carotids are 2+ without bruit heard. Respiratory: No use of accessory muscles. Lungs are clear throughout. Normal airflow. Cardiovascular: Regular rate and rhythm without murmur appreciated. Abdomen: Bowel sounds are normal. No hepatosplenomegaly masses or tenderness. Obese and therefore difficult to palpate deeply. Extremities: No cyanosis clubbing or edema. Neurological: A and O 3. Cranial nerves II through XII are intact. As only mild right-sided weakness. Is not sure if this is new or old, based upon history. Skin: Warm and non-diaphoretic with no lesions noted. Breasts, pelvic and rectal: Not examined. Internal Med - H&P Results - Labs CBC & Chem 7: 02/28/18 05:20 02/28/18 05:20 - Impressions ITS Impressions Videofluoroscopic Swallow 02/24/18 21:46 IMPRESSION: Swallowing mechanism grossly within normal limits without evidence of aspiration. Please see separate speech pathology report for full discussion of findings and recommendations. D/ / Shashank Santizo MD / Shashank Santizo MD Interpreting Provider: Shashank Santizo MD - VTE Documentation of Mechanical Device: Graduated compression elastic hosiery
--- NOTE | 2018-03-03 11:30 | Internal Med Progress Note ---
Date of Encounter: 02/26/18 Time of Encounter: 13:40 - Assessment and plan (1) Cerebrovascular accident Current Visit: Yes Status: Acute Assessment and plan: Patient continues to do well with therapies. She is noted to be frequently not responding, fatigue seems to be a great part of the problem. Qualifiers: CVA mechanism: unspecified Qualified Code(s): I63.9 - Cerebral infarction, unspecified (2) Diabetes Current Visit: Yes Status: Chronic Assessment and plan: Clinically stable. We will continue home regimen and sliding scale and follow. Qualifiers: Diabetes mellitus type: type 2 Diabetes mellitus marine oil terminal superintendent insulin use: with senior care use Diabetes mellitus complication detail: with autonomic neuropathy Qualified Code(s): E11.43 - Type 2 diabetes mellitus with diabetic autonomic (poly)neuropathy; Z79.4 - laborer marine terminal (current) use of insulin (3) HTN (hypertension) Current Visit: Yes Status: Chronic Qualifiers: Hypertension type: essential hypertension Qualified Code(s): I10 - Essential (primary) hypertension (4) HLD (hyperlipidemia) Current Visit: No Status: Chronic Assessment and plan: Blood pressures have generally been doing well. We will continue to follow with current regimen. Qualifiers: Hyperlipidemia type: pure hypercholesterolemia Qualified Code(s): E78.00 - Pure hypercholesterolemia, unspecified; E78.0 - Pure hypercholesterolemia (5) Acute on chronic renal insufficiency Current Visit: No Status: Acute (6) Partial seizure disorder Current Visit: No Status: Chronic (7) Parkinsonism Current Visit: Yes Status: Acute Qualifiers: Parkinsonism type: unspecified Qualified Code(s): G20 - Parkinson's disease (8) Diarrhea Current Visit: Yes Status: Acute Qualifiers: Diarrhea type: unspecified type Qualified Code(s): R19.7 - Diarrhea, unspecified (9) Hypothyroidism Current Visit: Yes Status: Acute Assessment and plan: Clinically stable. We will continue home regimen and follow. Qualifiers: Hypothyroidism type: unspecified Qualified Code(s): E03.9 - Hypothyroidism , unspecified (10) Slow transit constipation Current Visit: Yes Status: Acute Assessment and plan: Because she has not had a bowel movement for several days and not responded to laxatives, will use mag citrate. - Subjective Interval history: For schedule and/or computer reasons, this note is a late entry. Patient was seen on the date of the initial note. Patient without acute issues. Has still had constipation. We discussed this at length. No other issues, acutely. Doing better with therapies. Patient has no complaint of chest discomfort, dyspnea, orthopnea, palpitations, nausea or vomiting, constipation or diarrhea, other changes in bowel habits, difficulty with urination, rash or itching, or other new complaints, except as mentioned above. Review of systems is otherwise negative. - Constitutional Vitals: Temp Pulse Resp BP Pulse Ox Total signs as noted per nursing. General appearance: Present: cooperative, pleasant, answers questions appropriately Exam: Examination: (Except as mentioned above): General: In no apparent distress. Alert and oriented 3. Nondiaphoretic. Head: Atraumatic and normocephalic. Respiratory: No use of accessory muscles. Lungs are clear throughout. Normal airflow. Cardiovascular: Regular rate and rhythm without murmur appreciated. Abdomen: Bowel sounds are normal. No hepatosplenomegaly mass or tenderness appreciated. Obese and therefore difficult to palpate deeply.Patient is examined upright in chair and this also limits exam. Extremities: No cyanosis clubbing or edema. Skin: Warm and non-diaphoretic with no new lesions noted. Internal Medicine: Result - Labs CBC & Chem 7: 02/28/18 05:20 02/28/18 05:20 - VTE Documentation of Mechanical Device: Graduated compression elastic hosiery Consult Discharge Plan - Plan Referrals: Quiana Mendez MD [Primary Care Provider] -
--- NOTE | 2018-03-03 11:37 | Internal Med Progress Note ---
Date of Encounter: 02/27/18 Time of Encounter: 15:10 - Assessment and plan (1) Cerebrovascular accident Current Visit: Yes Status: Acute Assessment and plan: We will continue with therapies, tomorrow. No acute issues. Qualifiers: CVA mechanism: unspecified Qualified Code(s): I63.9 - Cerebral infarction, unspecified (2) Diabetes Current Visit: Yes Status: Chronic Assessment and plan: Clinically stable. We will continue home regimen and sliding scale and follow. Qualifiers: Diabetes mellitus type: type 2 Diabetes mellitus fpc insulin use: with fpc use Diabetes mellitus complication detail: with autonomic neuropathy Qualified Code(s): E11.43 - Type 2 diabetes mellitus with diabetic autonomic (poly)neuropathy; Z79.4 - middle or intermediate school principal (current) use of insulin (3) HTN (hypertension) Current Visit: Yes Status: Chronic Assessment and plan: Clinically stable. We will continue home regimen and follow. Qualifiers: Hypertension type: essential hypertension Qualified Code(s): I10 - Essential (primary) hypertension (4) HLD (hyperlipidemia) Current Visit: No Status: Chronic Assessment and plan: Clinically stable. We will continue home regimen and follow. Qualifiers: Hyperlipidemia type: pure hypercholesterolemia Qualified Code(s): E78.00 - Pure hypercholesterolemia, unspecified; E78.0 - Pure hypercholesterolemia (5) Partial seizure disorder Current Visit: No Status: Chronic (6) Parkinsonism Current Visit: Yes Status: Acute Assessment and plan: Clinically stable. Diagnosis is per history and no acute changes. We will continue home regimen and follow. Qualifiers: Parkinsonism type: unspecified Qualified Code(s): G20 - Parkinson's disease (7) Hypothyroidism Current Visit: Yes Status: Acute Qualifiers: Hypothyroidism type: unspecified Qualified Code(s): E03.9 - Hypothyroidism , unspecified (8) Slow transit constipation Current Visit: Yes Status: Acute Assessment and plan: Resolved with mag citrate. Will follow. - Subjective Interval history: For schedule and/or computer reasons, this note is a late entry. Patient was seen on the date of the initial note. Finally a bowel movement. The patient is otherwise doing okay and is pleased to have a day off from therapies. We will resume this, tomorrow. Patient has no complaint of chest discomfort, dyspnea, orthopnea, palpitations, nausea or vomiting, constipation or diarrhea, other changes in bowel habits, difficulty with urination, rash or itching, or other new complaints, except as mentioned above. Review of systems is otherwise negative. - Constitutional Vitals: Temp Pulse Resp BP Pulse Ox Vital signs as noted by nursing General appearance: Present: cooperative, pleasant, answers questions appropriately Exam: Examination: (Except as mentioned above): General: In no apparent distress. Alert and oriented 3. Nondiaphoretic. Head: Atraumatic and normocephalic. Respiratory: No use of accessory muscles. Lungs are clear throughout. Normal airflow. Cardiovascular: Regular rate and rhythm without murmur appreciated. Abdomen: Bowel sounds are normal. No hepatosplenomegaly mass or tenderness appreciated. Obese and therefore difficult to palpate deeply. Extremities: No cyanosis clubbing or edema. Skin: Warm and non-diaphoretic with no new lesions noted. Internal Medicine: Result - Labs CBC & Chem 7: 02/28/18 05:20 02/28/18 05:20 - VTE Documentation of Mechanical Device: Graduated compression elastic hosiery Consult Discharge Plan - Plan Referrals: Quiana Mendez MD [Primary Care Provider] -
[2018-03-03] MEDS: Fluconazole 100 MG TABLET PO SCH (14:27)
[2018-03-03] MEDS: Sennosides 8.6 MG TABLET PO SCH (19:56)
[2018-03-03] MEDS: Melatonin 3 MG TABLET PO PRN (19:56)
[2018-03-04] MEDS: *HR* Enoxaparin 40 MG/0.4 ML SYRINGE SQ SCH (06:39)
[2018-03-04] MEDS: Insulin LISPRO 300 UNITS/3 ML VIAL SQ SCH ×4 (08:16→19:53)
[2018-03-04] MEDS: Pregabalin 75 MG CAPSULE PO SCH (08:17)
[2018-03-04] MEDS: Aspirin 81 MG TAB.CHEW PO SCH (08:17)
[2018-03-04] MEDS: *HR* Metformin 500 MG TABLET PO SCH ×2 (08:18→17:06)
[2018-03-04] MEDS: amLODIPine 5 MG TABLET PO SCH (08:18)
[2018-03-04] MEDS: Fluconazole 100 MG TABLET PO SCH (08:18)
[2018-03-04] MEDS: Carbidopa/Levodopa 25/100 TABLET PO SCH ×2 (08:27→19:49)
[2018-03-04] MEDS: Insulin NPH/REG 70/30 100 UNIT/ML (x5UNIT) SQ SCH ×2 (08:27→17:06)
[2018-03-04] MEDS: levETIRAcetam 250 MG TABLET PO SCH ×2 (08:30→19:50)
[2018-03-04] MEDS ORDERED: Preparation H Ointment 30 GM TUBE TP PRN (10:09)
--- NOTE | 2018-03-04 11:23 | Internal Med Progress Note ---
Date of Encounter: 03/04/18 Time of Encounter: 11:21 - Assessment and plan (1) Cerebrovascular accident Current Visit: Yes Status: Acute Assessment and plan: No acute issues. Patient continues with slight left hemiparesis, which has improved. Continues with mild confusion secondary to parkinsonian dementia. Patient to continue with physical therapy which she is reportedly progressing well with. We will continue with current plan of care Qualifiers: CVA mechanism: unspecified Qualified Code(s): I63.9 - Cerebral infarction, unspecified (2) Diabetes Current Visit: Yes Status: Chronic Assessment and plan: No acute issues. Patient's blood glucose has improved over the last week on fingerstick readings, although she did have one reading that was <50. We will continue with current sliding scale insulin coverage and monitor closley. We will review patient's long-acting coverage Qualifiers: Diabetes mellitus type: type 2 Diabetes mellitus care home insulin use: with middle or intermediate school principal use Diabetes mellitus complication detail: with autonomic neuropathy Qualified Code(s): E11.43 - Type 2 diabetes mellitus with diabetic autonomic (poly)neuropathy; Z79.4 - assisted (current) use of insulin (3) HTN (hypertension) Current Visit: Yes Status: Chronic Assessment and plan: Vital signs stable. We will continue with current medications. Qualifiers: Hypertension type: essential hypertension Qualified Code(s): I10 - Essential (primary) hypertension - Time Spent With Patient less than 15 minutes - Subjective Interval history: Patient appears relaxed and currently denies any discomforts or shortness of breath. Patient did state concerns about a low fingerstick reading last evening when her glucose dropped below 50. She was asymptomatic at that time and rec'd corrective action for the glucose. Her next fingerstick was >300. Patient slightly confused and has poor historian. - Constitutional Vitals: Temp Pulse Resp BP Pulse Ox 97.7 F 79 16 146/64 96 03/04/18 07:00 03/04/18 07:00 03/04/18 07:00 03/04/18 07:00 03/04/18 07:00 General appearance: Present: cooperative, A&O X 2, pleasant, answers questions appropriately Exam: oriented x2, but not to time. - Head Head exam: Present: atraumatic, normocephalic - Eye Eye exam: Present: PERRL, conjuntiva pink, sclera anicteric Pupils: Present: PERRL - Neck Neck exam general surgery: Present: supple, trachea midline. Absent: lymphadenopathy - Respiratory Respiratory exam: Present: CTAB. Absent: accessory muscle use, rales, rhonchi, wheezes - Cardiovascular Cardiovascular exam: Present: RRR, +S1, +S2. Absent: diastolic murmur, gallop, rubs, systolic murmur - GI/Abdominal GI/Abdominal exam: Present: normal bowel sounds, soft, no peritoneal signs. Absent: distended, tenderness - Extremities Exam Extremities exam: Present: warm, radial pulses palpable and symmetrical. Absent : calf tenderness, cyanotic, pedal edema - Neurological Exam Neurological exam: Present: CN II-XII intact, oriented X3, no focal deficits. Absent: pronater drift, facial droop, speech deficit Additional comments: continued slight left hemiparesis with LE +4/5 and the RE 5/5. Remains slight confused, but Hx of parkinsons dementia. - Skin Skin exam: Present: dry, intact Internal Medicine: Result - Labs CBC & Chem 7: 02/28/18 05:20 02/28/18 05:20 - VTE Documentation of Mechanical Device: Graduated compression elastic hosiery Consult Discharge Plan - Plan Referrals: Quiana Mendez MD [Primary Care Provider] -
[2018-03-04] MEDS: Sennosides 8.6 MG TABLET PO SCH ×2 (19:50→19:51)
[2018-03-04] MEDS: traMADol 50 MG TABLET PO PRN (19:50)
[2018-03-04] MEDS: Melatonin 3 MG TABLET PO PRN (19:51)
[2018-03-05] MEDS: *HR* Enoxaparin 40 MG/0.4 ML SYRINGE SQ SCH (03:09)
[2018-03-05] MEDS: Insulin LISPRO 300 UNITS/3 ML VIAL SQ SCH ×4 (08:09→21:50)
[2018-03-05] MEDS: amLODIPine 5 MG TABLET PO SCH (08:10)
[2018-03-05] MEDS: Pregabalin 75 MG CAPSULE PO SCH (08:10)
[2018-03-05] MEDS: Sennosides 8.6 MG TABLET PO SCH ×3 (08:10→21:50)
[2018-03-05] MEDS: levETIRAcetam 250 MG TABLET PO SCH ×2 (08:10→21:49)
[2018-03-05] MEDS: *HR* Metformin 500 MG TABLET PO SCH ×2 (08:11→16:43)
[2018-03-05] MEDS: Fluconazole 100 MG TABLET PO SCH (08:11)
[2018-03-05] MEDS: Carbidopa/Levodopa 25/100 TABLET PO SCH ×2 (08:11→21:49)
[2018-03-05] MEDS: Insulin NPH/REG 70/30 100 UNIT/ML (x5UNIT) SQ SCH ×2 (08:11→16:43)
[2018-03-05] MEDS: Aspirin 81 MG TAB.CHEW PO SCH (08:11)
--- NOTE | 2018-03-05 10:31 | Internal Med Progress Note ---
Date of Encounter: 03/05/18 Time of Encounter: 10:29 - Assessment and plan (1) Cerebrovascular accident Current Visit: Yes Status: Acute Assessment and plan: stable at the present time she is getting her rehab and seem to be improving continue present treatment . Qualifiers: CVA mechanism: unspecified Qualified Code(s): I63.9 - Cerebral infarction, unspecified (2) Diabetes Current Visit: Yes Status: Chronic Assessment and plan: blood sugars have improved stable no new change continue present regimen Qualifiers: Diabetes mellitus type: type 2 Diabetes mellitus rat exterminator insulin use: with longterm use Diabetes mellitus complication detail: with autonomic neuropathy Qualified Code(s): E11.43 - Type 2 diabetes mellitus with diabetic autonomic (poly)neuropathy; Z79.4 - longterm (current) use of insulin (3) HTN (hypertension) Current Visit: Yes Status: Chronic Assessment and plan: stable Qualifiers: Hypertension type: essential hypertension Qualified Code(s): I10 - Essential (primary) hypertension - Subjective Interval history: Cross coverage no acute issues at the present time seen in the dinning [place] . She denies any acute issues feels that her strength in her arm right side is getting better and she was able hold my hand .leg is still weak She denies any chest pain SOB or any difficulty in swallowing overall she feels that she is getting better - Constitutional Vitals: Temp Pulse Resp BP Pulse Ox 98.0 F 72 18 146/73 97 03/05/18 08:05 03/05/18 08:05 03/05/18 08:05 03/05/18 08:05 03/05/18 08:05 General appearance: Present: cooperative, A&O X 3, pleasant, answers questions appropriately - Head Head exam: Present: atraumatic - Eye Eye exam: Present: EOMI, PERRL. Absent: periorbital tenderness, scleral icterus , conjuntiva pink, sclera anicteric - Neck Neck exam general surgery: Present: full ROM, supple. Absent: tenderness, nuchal rigidity - Respiratory Respiratory exam: Present: CTAB. Absent: accessory muscle use, respiratory distress, rhonchi, stridor, wheezes, tachypnea - Cardiovascular Cardiovascular exam: Present: RRR, +S1, +S2. Absent: irregular rhythm, JVD, systolic murmur - GI/Abdominal GI/Abdominal exam: Present: normal bowel sounds, soft. Absent: distended, firm , guarding, pulsatile mass, rebound - Extremities Exam Extremities exam: Absent: pedal edema, tenderness - Neurological Exam Neurological exam: Present: CN II-XII intact, oriented X3. Absent: facial droop , speech deficit Additional comments: right side able to move with support good mechanical project manager strength is less then left side unable to move her leg 0/5 left side 5/5 Internal Medicine: Result - Labs CBC & Chem 7: 02/28/18 05:20 02/28/18 05:20 - VTE Documentation of Mechanical Device: Graduated compression elastic hosiery Consult Discharge Plan - Plan Referrals: Quiana Mendez MD [Primary Care Provider] -
[2018-03-06] MEDS: *HR* Enoxaparin 40 MG/0.4 ML SYRINGE SQ SCH (04:52)
[2018-03-06] MEDS: levETIRAcetam 250 MG TABLET PO SCH ×2 (08:19→21:10)
[2018-03-06] MEDS: *HR* Metformin 500 MG TABLET PO SCH ×2 (08:20→17:14)
[2018-03-06] MEDS: Fluconazole 100 MG TABLET PO SCH (08:20)
[2018-03-06] MEDS: Aspirin 81 MG TAB.CHEW PO SCH (08:20)
[2018-03-06] MEDS: amLODIPine 5 MG TABLET PO SCH (08:21)
[2018-03-06] MEDS: Pregabalin 75 MG CAPSULE PO SCH (08:21)
[2018-03-06] MEDS: Carbidopa/Levodopa 25/100 TABLET PO SCH ×2 (08:23→21:09)
[2018-03-06] MEDS: Sennosides 8.6 MG TABLET PO SCH ×3 (08:24→21:10)
[2018-03-06] MEDS: Insulin LISPRO 300 UNITS/3 ML VIAL SQ SCH ×4 (08:51→21:12)
[2018-03-06] MEDS: Insulin NPH/REG 70/30 100 UNIT/ML (x5UNIT) SQ SCH ×3 (08:54→22:12)
--- NOTE | 2018-03-06 09:47 | Internal Med Progress Note ---
Date of Encounter: 03/06/18 Time of Encounter: 09:43 - Assessment and plan (1) Cerebrovascular accident Current Visit: Yes Status: Acute Assessment and plan: stable getting rehab and seems to be getting better slowly. Dysarthia noted today since she was speaking more very subtle will follow also noted rash on her feet dermatitis on diflucan orally she says that it seems to be getting better Qualifiers: CVA mechanism: unspecified Qualified Code(s): I63.9 - Cerebral infarction, unspecified (2) Diabetes Current Visit: Yes Status: Chronic Assessment and plan: insulin dependent , On 70/30 decrease kelly in the evening , had one episode of low blood sugars Qualifiers: Diabetes mellitus type: type 2 Diabetes mellitus fpc insulin use: with fpc use Diabetes mellitus complication detail: with autonomic neuropathy Qualified Code(s): E11.43 - Type 2 diabetes mellitus with diabetic autonomic (poly)neuropathy; 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 No chest pain SOB or any other issues feels better overall - Constitutional Vitals: Temp Pulse Resp BP Pulse Ox 98.0 F 70 18 121/80 94 03/06/18 07:22 03/06/18 07:22 03/06/18 07:22 03/06/18 07:22 03/06/18 07:22 General appearance: Present: cooperative, A&O X 3, pleasant, answers questions appropriately - Head Head exam: Present: atraumatic - Eye Eye exam: Present: EOMI, PERRL. Absent: scleral icterus, conjuntiva pink - Neck Neck exam general surgery: Present: supple. Absent: tenderness, nuchal rigidity - Respiratory Respiratory exam: Present: CTAB. Absent: chest wall tenderness, respiratory distress, rhonchi, stridor, wheezes - Cardiovascular Cardiovascular exam: Present: RRR, +S1, +S2. Absent: gallop, irregular rhythm, JVD, systolic murmur - GI/Abdominal GI/Abdominal exam: Present: normal bowel sounds, soft. Absent: distended, guarding, rebound, rigid, tenderness - Extremities Exam Extremities exam: Absent: pedal edema, tenderness - Neurological Exam Neurological exam: Present: CN II-XII intact, oriented X3, speech deficit. Absent: facial droop Additional comments: Noticed some dyarthia today which was not apparent yesterday. Right side weakness as before - Skin Additional comments: She has macular rash both soles non itching seems to be getting better Internal Medicine: Result - Labs CBC & Chem 7: 02/28/18 05:20 02/28/18 05:20 - VTE Documentation of Mechanical Device: Graduated compression elastic hosiery Consult Discharge Plan - Plan Referrals: Quiana Mendez MD [Primary Care Provider] -
[2018-03-07] MEDS: *HR* Enoxaparin 40 MG/0.4 ML SYRINGE SQ SCH (05:20)
[2018-03-07 06:19] LABS: Basophils # 0.1 K/mcL (0.0-0.2); Eosinophils # 0.3 K/mcL (0.0-0.6); Eosinophils % 4.2 %; Hematocrit 31.1 % (35.3-44.9); Hemoglobin 10.5 g/dL (11.5-15.4); Immature Granulocytes % 0.3 % (0-4); Lymphocytes # 2.3 K/mcL (0.6-4.6); Lymphocytes % 32.2 %; Mean Corpuscular HGB Conc 33.8 g/dL (31.6-35.5); Mean Corpuscular Hemoglobin 29.7 pg (28.0-33.3); Mean Corpuscular Volume 88.1 fL (83.0-100.0); Mean Platelet Volume 10.7 fL (9.4-12.4); Monocytes # 0.6 K/mcL (0.0-1.3); Monocytes % 8.6 %; Neutrophils # 3.9 K/mcL (1.6-8.9); Platelet Count 165 K/mcL (140-400); Red Blood Count 3.53 M/mcL (3.82-4.97); Red Cell Distribution Width 13.2 % (11.5-14.5); Segmented Neutrophils % 53.7 %
[2018-03-07] MEDS: Insulin LISPRO 300 UNITS/3 ML VIAL SQ SCH ×4 (07:54→21:42)
[2018-03-07 09:07] LABS: BUN/Creatinine Ratio 26 (6-26); Blood Urea Nitrogen 22 mg/dL (8-23); Calcium 9.8 mg/dL (8.6-10.3); Carbon Dioxide 27 mEq/L (23-29); Chloride 104 mEq/L (98-107); Glucose 97 mg/dL (70-105); Osmolality,Calculated 291 (280-300); Potassium 4.3 mEq/L (3.5-5.1); Sodium 139 mEq/L (136-145); eGFR For African Americans > 60 (> 60); eGFR For Non-African Americans > 60 (> 60)
[2018-03-07] MEDS: Aspirin 81 MG TAB.CHEW PO SCH (09:21)
[2018-03-07] MEDS: *HR* Metformin 500 MG TABLET PO SCH ×2 (09:21→16:50)
[2018-03-07] MEDS: Carbidopa/Levodopa 25/100 TABLET PO SCH ×2 (09:22→21:43)
[2018-03-07] MEDS: amLODIPine 5 MG TABLET PO SCH (09:22)
[2018-03-07] MEDS: levETIRAcetam 250 MG TABLET PO SCH ×2 (09:22→21:42)
[2018-03-07] MEDS: Sennosides 8.6 MG TABLET PO SCH ×3 (09:23→21:43)
--- NOTE | 2018-03-07 10:07 | Internal Med Progress Note ---
Date of Encounter: 03/07/18 Time of Encounter: 10:01 - Assessment and plan (1) Cerebrovascular accident Current Visit: Yes Status: Acute Assessment and plan: stable Getting Rehab and is improving no new changes noted Qualifiers: CVA mechanism: unspecified Qualified Code(s): I63.9 - Cerebral infarction, unspecified (2) Diabetes Current Visit: Yes Status: Chronic Assessment and plan: Blood sugars are little better no low blood sugars Insulin was decreased continue to monitor and adjust her dosage Qualifiers: Diabetes mellitus type: type 2 Diabetes mellitus senior living insulin use: with senior living use Diabetes mellitus complication detail: with autonomic neuropathy Qualified Code(s): E11.43 - Type 2 diabetes mellitus with diabetic autonomic (poly)neuropathy; Z79.4 - long-term (current) use of insulin (3) HTN (hypertension) Current Visit: Yes Status: Chronic Assessment and plan: stable no new change Qualifiers: Hypertension type: essential hypertension Qualified Code(s): I10 - Essential (primary) hypertension - Subjective Interval history: Cross coverage no acute issues at the present time Blood sugars are some what better . Meds were decreased overall she is feeling much better - Constitutional Vitals: Temp Pulse Resp BP Pulse Ox 98.1 F 71 12 140/71 97 03/07/18 08:07 03/07/18 08:07 03/07/18 08:07 03/07/18 08:07 03/07/18 08:07 General appearance: Present: cooperative, A&O X 3, pleasant, answers questions appropriately - Head Head exam: Present: atraumatic - Eye Eye exam: Present: EOMI, PERRL. Absent: scleral icterus, conjuntiva pink, sclera anicteric - Neck Neck exam general surgery: Present: full ROM, supple. Absent: nuchal rigidity - Respiratory Respiratory exam: Present: CTAB, rales. Absent: respiratory distress, rhonchi, stridor, wheezes, tachypnea - Cardiovascular Cardiovascular exam: Present: RRR, +S1, +S2. Absent: irregular rhythm, JVD, systolic murmur, tachycardia - GI/Abdominal GI/Abdominal exam: Present: normal bowel sounds, soft. Absent: guarding, rebound, rigid, tenderness, no peritoneal signs - Extremities Exam Extremities exam: Present: full ROM. Absent: pedal edema, tenderness - Neurological Exam Neurological exam: Present: CN II-XII intact, oriented X3, speech deficit. Absent: facial droop Additional comments: focal deficit as before right side lower more then upper weakness . still has some dyarthia but improving Internal Medicine: Result - Labs CBC & Chem 7: 03/07/18 06:00 03/07/18 06:00 Labs: Short CBC 03/07/18 Range/Units 06:00 WBC 7.2 (4.3-11.1) K/mcL Hgb 10.5 L (11.5-15.4) g/dL Hct 31.1 L (35.3-44.9) % Plt Count 165 (140-400) K/mcL Neutrophils # 3.9 (1.6-8.9) K/mcL BMP 03/07/18 06:00 Sodium 139 Potassium 4.3 Chloride 104 Carbon Dioxide 27 BUN 22 Creatinine 0.84 Glucose 97 Calcium 9.8 - VTE Documentation of Mechanical Device: Graduated compression elastic hosiery Consult Discharge Plan - Plan Referrals: Quiana Mendez MD [Primary Care Provider] -
[2018-03-07] MEDS: Insulin NPH/REG 70/30 100 UNIT/ML (x5UNIT) SQ SCH ×2 (10:43→17:09)
[2018-03-07] MEDS: Melatonin 3 MG TABLET PO PRN (21:44)
[2018-03-07] MEDS: traMADol 50 MG TABLET PO PRN (21:45)
[2018-03-08] MEDS ORDERED: Preparation H Ointment 30 GM TUBE TP PRN
[2018-03-08] MEDS: *HR* Enoxaparin 40 MG/0.4 ML SYRINGE SQ SCH (05:39)
[2018-03-08] MEDS: Insulin LISPRO 300 UNITS/3 ML VIAL SQ SCH ×4 (08:55→21:30)
[2018-03-08] MEDS: Aspirin 81 MG TAB.CHEW PO SCH (08:56)
[2018-03-08] MEDS: *HR* Metformin 500 MG TABLET PO SCH ×2 (08:56→16:58)
[2018-03-08] MEDS: levETIRAcetam 250 MG TABLET PO SCH ×2 (08:57→21:30)
[2018-03-08] MEDS: amLODIPine 5 MG TABLET PO SCH (08:57)
[2018-03-08] MEDS: Sennosides 8.6 MG TABLET PO SCH ×3 (08:57→21:30)
[2018-03-08] MEDS: Carbidopa/Levodopa 25/100 TABLET PO SCH ×2 (08:57→21:31)
[2018-03-08] MEDS: Insulin NPH/REG 70/30 100 UNIT/ML (x5UNIT) SQ SCH ×2 (08:58→16:58)
--- NOTE | 2018-03-08 10:05 | Internal Med Progress Note ---
Date of Encounter: 03/08/18 Time of Encounter: 10:02 - Assessment and plan (1) Cerebrovascular accident Current Visit: Yes Status: Acute Assessment and plan: She continues to progress well. We will continue with therapies. No acute issues. Qualifiers: CVA mechanism: unspecified Qualified Code(s): I63.9 - Cerebral infarction, unspecified (2) Diabetes Current Visit: Yes Status: Chronic Assessment and plan: Clinically stable. We will continue home regimen and sliding scale and follow. 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 We will continue home regimen and follow. Qualifiers: Hyperlipidemia type: pure hypercholesterolemia Qualified Code(s): E78.00 - Pure hypercholesterolemia, unspecified; E78.0 - Pure hypercholesterolemia (5) Partial seizure disorder Current Visit: No Status: Chronic Assessment and plan: No reported seizures, no evidence of problems, currently. (6) Parkinsonism Current Visit: Yes Status: Acute Assessment and plan: Clinically stable. This is mild, clinically.. Qualifiers: Parkinsonism type: unspecified Qualified Code(s): G20 - Parkinson's disease (7) Hypothyroidism Current Visit: Yes Status: Acute Assessment and plan: Clinically stable. We will continue home regimen and follow. Qualifiers: Hypothyroidism type: unspecified Qualified Code(s): E03.9 - Hypothyroidism , unspecified (8) Slow transit constipation Current Visit: Yes Status: Acute Assessment and plan: Improved. See H PI regarding her hemorrhoids. - Subjective Interval history: Patient is doing well. She is taking her stool softener and is moving her bowels every day. She does feel that she needs Preparation H and she has not been getting this. I thought that this was ordered for 5 days ago. Upon review , she has it as needed and therefore has need to ask for it. We will ask nursing to administer and volunteered. No other acute issues. Patient has no complaint of chest discomfort, dyspnea, orthopnea, palpitations, nausea or vomiting, constipation or diarrhea, other changes in bowel habits, difficulty with urination, rash or itching, or other new complaints, except as mentioned above. Review of systems is otherwise negative. - Constitutional Vitals: Temp Pulse Resp BP Pulse Ox 98.1 F 79 16 146/68 97 03/08/18 06:43 03/08/18 06:43 03/08/18 06:43 03/08/18 06:43 03/08/18 06:43 General appearance: Present: cooperative, pleasant, answers questions appropriately Exam: Examination: (Except as mentioned above): General: In no apparent distress. Alert and oriented 3. Nondiaphoretic. Head: Atraumatic and normocephalic. Respiratory: No use of accessory muscles. Lungs are clear throughout. Normal airflow. Cardiovascular: Regular rate and rhythm without murmur appreciated. Abdomen: Bowel sounds are normal. No hepatosplenomegaly mass or tenderness appreciated. Obese and therefore difficult to palpate deeply. Patient is examined upright in chair and this also limits exam. Extremities: No cyanosis clubbing or edema. Skin: Warm and non-diaphoretic with no new lesions noted. Internal Medicine: Result - Labs CBC & Chem 7: 03/07/18 06:00 03/07/18 06:00 - VTE Documentation of Mechanical Device: Graduated compression elastic hosiery Consult Discharge Plan - Plan Referrals: Quiana Mendez MD [Primary Care Provider] -
[2018-03-08] MEDS ORDERED: Sennosides 8.6 MG TABLET PO PRN (21:16)
[2018-03-08] MEDS: traMADol 50 MG TABLET PO PRN (21:31)
[2018-03-08] MEDS: Melatonin 3 MG TABLET PO PRN (21:31)
[2018-03-09] MEDS: *HR* Enoxaparin 40 MG/0.4 ML SYRINGE SQ SCH (04:53)
[2018-03-09] MEDS: Insulin LISPRO 300 UNITS/3 ML VIAL SQ SCH ×4 (07:32→20:57)
[2018-03-09] MEDS: Insulin NPH/REG 70/30 100 UNIT/ML (x5UNIT) SQ SCH ×2 (07:41→17:15)
[2018-03-09] MEDS: amLODIPine 5 MG TABLET PO SCH (07:42)
[2018-03-09] MEDS: *HR* Metformin 500 MG TABLET PO SCH ×2 (07:42→17:14)
[2018-03-09] MEDS: Carbidopa/Levodopa 25/100 TABLET PO SCH ×2 (07:42→20:57)
[2018-03-09] MEDS: Sennosides 8.6 MG TABLET PO SCH ×2 (07:42→20:58)
[2018-03-09] MEDS: levETIRAcetam 250 MG TABLET PO SCH ×2 (07:42→20:57)
[2018-03-09] MEDS: Aspirin 81 MG TAB.CHEW PO SCH (07:42)
--- NOTE | 2018-03-09 10:59 | Internal Med Progress Note ---
Date of Encounter: 03/09/18 Time of Encounter: 10:57 - Assessment and plan (1) Cerebrovascular accident Current Visit: Yes Status: Acute Assessment and plan: PT/OT/ST to eval and treat. will follow progress. No new neurological deficits Qualifiers: CVA mechanism: unspecified Qualified Code(s): I63.9 - Cerebral infarction, unspecified (2) Diabetes Current Visit: Yes Status: Chronic Assessment and plan: Controlled with current medication. will monitor FSBS Qualifiers: Diabetes mellitus type: type 2 Diabetes mellitus skilled nursing insulin use: with manager terminal use Diabetes mellitus complication detail: with autonomic neuropathy Qualified Code(s): E11.43 - Type 2 diabetes mellitus with diabetic autonomic (poly)neuropathy; Z79.4 - terminal operations supervisor (current) use of insulin (3) HTN (hypertension) Current Visit: Yes Status: Chronic Assessment and plan: controlled with current meds. monitor BP Qualifiers: Hypertension type: essential hypertension Qualified Code(s): I10 - Essential (primary) hypertension (4) Nausea Current Visit: Yes Status: Acute Assessment and plan: will monitor for improvement. - Subjective Interval history: Patient participating well with therapy. Complaining of nausea this morning. No vomiting. Refusing Zofran . States she was nauseated yesterday and it resolved by afternoon. She would like to see if it results today . Bowel movement this morning. Denies fever, chills. Denies pain. Maintaining appetite and hydration. - Constitutional Vitals: Temp Pulse Resp BP Pulse Ox 97.6 F 68 16 167/66 95 03/09/18 07:45 03/09/18 07:45 03/09/18 07:45 03/09/18 07:45 03/09/18 07:45 General appearance: Present: cooperative, A&O X 3, pleasant, answers questions appropriately - Head Head exam: Present: atraumatic, normocephalic - Eye Eye exam: Present: PERRL, conjuntiva pink, sclera anicteric Pupils: Present: PERRL - Neck Neck exam general surgery: Present: supple, trachea midline. Absent: lymphadenopathy - Respiratory Respiratory exam: Present: CTAB. Absent: accessory muscle use, rales, rhonchi, wheezes - Cardiovascular Cardiovascular exam: Present: RRR, +S1, +S2. Absent: diastolic murmur, gallop, rubs, systolic murmur - GI/Abdominal GI/Abdominal exam: Present: normal bowel sounds, soft, no peritoneal signs. Absent: distended, tenderness - Extremities Exam Extremities exam: Present: warm, radial pulses palpable and symmetrical. Absent : calf tenderness, cyanotic, pedal edema - Neurological Exam Neurological exam: Present: CN II-XII intact, oriented X3, no focal deficits. Absent: pronater drift, facial droop, speech deficit - Skin Skin exam: Present: dry, intact Internal Medicine: Result - Labs CBC & Chem 7: 03/07/18 06:00 03/07/18 06:00 - VTE Documentation of Mechanical Device: Graduated compression elastic hosiery Consult Discharge Plan - Plan Referrals: Quiana Mendez MD [Primary Care Provider] -
--- NOTE | 2018-03-09 18:46 | Physical Med Progress Note ---
Date of Encounter: 03/09/18 Time of Encounter: 18:35 Assessment and Plan (1) Cerebrovascular accident Current Visit: Yes Status: Acute Assessment and plan: Slow progress. Poor carryover, safety awareness. Unsteady gait. Dementia. Team recommends 24hr supervision. CGA for ADL. Qualifiers: CVA mechanism: unspecified Qualified Code(s): I63.9 - Cerebral infarction, unspecified Physical Medicine-PN: Subj Interval history: No C/O. - Constitutional Vitals: Vital Signs Temp Pulse Resp BP Pulse Ox 03/09/18 07:45 97.6 F 68 16 167/66 95 03/08/18 19:00 98.2 F 75 18 129/90 97 Intake and Output 03/09/18 03/09/18 03/09/18 07:59 15:59 23:59 Intake Total 100 / 100 240 / 240 240 / 240 Balance 100 / 100 240 / 240 240 / 240 Intake: Oral 100 / 100 240 / 240 240 / 240 Other: Meal Breakfast Dinner Percent of Meal Consumed 100% 100% # Voids 1 1 Blood Glucose* 121 201 135 General appearance: average body habitus, cooperative, no acute distress - Head Head exam: Present: atraumatic, normocephalic - Eye Eye exam: Present: EOMI - ENT ENT exam: Present: mucous membranes moist - Neck Neck exam: Present: full ROM - Respiratory Respiratory exam: Present: CTAB - Cardiovascular Cardiovascular exam: Present: RRR. Absent: irregular rhythm - GI/Abdominal GI/Abdominal exam: Present: normal bowel sounds, soft - Extremities Exam Extremities exam: Present: full ROM, normal inspection Additional comments: 4/5 strength all four extremities. No CCE. - Neurological Exam Neurological exam: Present: abnormal gait, alert, motor sensory deficit, oriented X3 - Psychiatric Psychiatric exam: Present: normal affect, normal mood - Skin Skin exam: Present: intact Physical Medicine-PN: Obj Data - Labs CBC & Chem 7: 03/07/18 06:00 03/07/18 06:00 Labs: Laboratory Results - last 24 hr 03/08/18 03/08/18 03/09/18 07:26 20:18 07:13 POC Glucose 201 H 126 H 121 H 03/09/18 03/09/18 11:16 16:25 POC Glucose 201 H 135 H - VTE Documentation of Mechanical Device: Graduated compression elastic hosiery Consult Discharge Plan - Plan Referrals: Quiana Mendez MD [Primary Care Provider] -
[2018-03-09] MEDS: Ondansetron ODT 4 MG TAB.RAPDIS SL PRN (20:57)
[2018-03-09] MEDS: Melatonin 3 MG TABLET PO PRN (20:57)
[2018-03-10] MEDS: *HR* Enoxaparin 40 MG/0.4 ML SYRINGE SQ SCH (06:48)
--- NOTE | 2018-03-10 08:34 | Internal Med Progress Note ---
Date of Encounter: 03/10/18 Time of Encounter: 08:32 - Assessment and plan (1) Cerebrovascular accident Current Visit: Yes Status: Acute Assessment and plan: Patient with continued progress but dementia seems to be inhibiting her on many days. See above notes about going plans and family meeting, this afternoon. Qualifiers: CVA mechanism: unspecified Qualified Code(s): I63.9 - Cerebral infarction, unspecified (2) Diabetes Current Visit: Yes Status: Chronic Assessment and plan: She has only fair control. We will continue to follow as planned. We will continue sliding scale insulin. Qualifiers: Diabetes mellitus type: type 2 Diabetes mellitus retirement insulin use: with hot wire glass tube cutter use Diabetes mellitus complication detail: with autonomic neuropathy Qualified Code(s): E11.43 - Type 2 diabetes mellitus with diabetic autonomic (poly)neuropathy; Z79.4 - intermediate (current) use of insulin (3) HTN (hypertension) Current Visit: Yes Status: Chronic Assessment and plan: Clinically stable with marginal elevations. Most okay. We will continue home regimen and follow. Qualifiers: Hypertension type: essential hypertension Qualified Code(s): I10 - Essential (primary) hypertension (4) HLD (hyperlipidemia) Current Visit: No Status: Chronic Assessment and plan: Clinically stable. We will continue home regimen and follow. Qualifiers: Hyperlipidemia type: pure hypercholesterolemia Qualified Code(s): E78.00 - Pure hypercholesterolemia, unspecified; E78.0 - Pure hypercholesterolemia (5) Partial seizure disorder Current Visit: No Status: Chronic (6) Parkinsonism Current Visit: Yes Status: Acute Qualifiers: Parkinsonism type: unspecified Qualified Code(s): G20 - Parkinson's disease (7) Hypothyroidism Current Visit: Yes Status: Acute Qualifiers: Hypothyroidism type: unspecified Qualified Code(s): E03.9 - Hypothyroidism , unspecified (8) Slow transit constipation Current Visit: Yes Status: Acute Assessment and plan: Improved. Had loose stool but only one episode yesterday. Will follow. - Subjective Interval history: Patient with no acute complaints. Moved her bowels yesterday as noted. No urinary symptoms. Denies problems or other issues but concerned about home- going plans and her "" and his meeting with staff this afternoon. Patient has no complaint of chest discomfort, dyspnea, orthopnea, palpitations, nausea or vomiting, constipation or diarrhea, other changes in bowel habits, difficulty with urination, rash or itching, or other new complaints, except as mentioned above. Review of systems is otherwise negative. - Constitutional Vitals: Temp Pulse Resp BP Pulse Ox 98.2 F 79 16 136/75 96 03/09/18 19:13 03/09/18 19:13 03/09/18 19:13 03/09/18 19:13 03/09/18 19:13 General appearance: Present: cooperative, pleasant, answers questions appropriately Exam: Examination: (Except as mentioned above): General: In no apparent distress. Alert and oriented 3. Nondiaphoretic. Head: Atraumatic and normocephalic. Respiratory: No use of accessory muscles. Lungs are clear throughout. Normal airflow. Cardiovascular: Regular rate and rhythm without murmur appreciated. Abdomen: Bowel sounds are normal. No hepatosplenomegaly mass or tenderness appreciated. Obese and therefore difficult to palpate deeply. Extremities: No cyanosis clubbing or edema. Skin: Warm and non-diaphoretic with no new lesions noted. Internal Medicine: Result - Labs CBC & Chem 7: 03/07/18 06:00 03/07/18 06:00 - VTE Documentation of Mechanical Device: Graduated compression elastic hosiery Consult Discharge Plan - Plan Referrals: Quiana Mendez MD [Primary Care Provider] -
[2018-03-10] MEDS: Aspirin 81 MG TAB.CHEW PO SCH (10:41)
[2018-03-10] MEDS: Carbidopa/Levodopa 25/100 TABLET PO SCH ×2 (10:41→19:29)
[2018-03-10] MEDS: *HR* Metformin 500 MG TABLET PO SCH ×2 (10:41→17:47)
[2018-03-10] MEDS: Insulin NPH/REG 70/30 100 UNIT/ML (x5UNIT) SQ SCH ×2 (10:42→17:48)
[2018-03-10] MEDS: Insulin LISPRO 300 UNITS/3 ML VIAL SQ SCH ×4 (10:42→20:30)
[2018-03-10] MEDS: levETIRAcetam 250 MG TABLET PO SCH ×2 (10:42→19:29)
[2018-03-10] MEDS: amLODIPine 5 MG TABLET PO SCH (10:42)
[2018-03-10] MEDS: Sennosides 8.6 MG TABLET PO SCH ×2 (10:43→19:29)
[2018-03-10] MEDS: Melatonin 3 MG TABLET PO PRN (19:29)
[2018-03-11] MEDS: *HR* Enoxaparin 40 MG/0.4 ML SYRINGE SQ SCH (03:35)
[2018-03-11] MEDS: Insulin LISPRO 300 UNITS/3 ML VIAL SQ SCH ×4 (08:49→20:22)
[2018-03-11] MEDS: Sennosides 8.6 MG TABLET PO SCH ×2 (08:57→20:25)
[2018-03-11] MEDS: Carbidopa/Levodopa 25/100 TABLET PO SCH ×2 (08:59→20:25)
[2018-03-11] MEDS: amLODIPine 5 MG TABLET PO SCH (08:59)
[2018-03-11] MEDS: levETIRAcetam 250 MG TABLET PO SCH ×2 (08:59→20:25)
[2018-03-11] MEDS: Aspirin 81 MG TAB.CHEW PO SCH (08:59)
[2018-03-11] MEDS: *HR* Metformin 500 MG TABLET PO SCH ×2 (09:00→17:13)
[2018-03-11] MEDS: Insulin NPH/REG 70/30 100 UNIT/ML (x5UNIT) SQ SCH ×2 (09:01→17:13)
--- NOTE | 2018-03-11 10:50 | Internal Med Progress Note ---
Date of Encounter: 03/11/18 Time of Encounter: 09:30 - Assessment and plan (1) Cerebrovascular accident Current Visit: Yes Status: Acute Assessment and plan: As stated before, patient with continued progress but dementia seems to be inhibiting her on many days. Plan to continue therapies and consider home needs , as above. Qualifiers: CVA mechanism: unspecified Qualified Code(s): I63.9 - Cerebral infarction, unspecified (2) Diabetes Current Visit: Yes Status: Chronic Assessment and plan: Control has improved significantly. We will follow and may need to adjust. Continue current regimen and sliding scale. Qualifiers: Diabetes mellitus type: type 2 Diabetes mellitus intermodal owner operator truck driver insulin use: with intermodal owner operator truck driver use Diabetes mellitus complication detail: with autonomic neuropathy Qualified Code(s): E11.43 - Type 2 diabetes mellitus with diabetic autonomic (poly)neuropathy; Z79.4 - buttermaker continuous churn (current) use of insulin (3) HTN (hypertension) Current Visit: Yes Status: Chronic Assessment and plan: Clinically stable with marginal elevations. Most readings remain okay. We will continue home regimen and follow. Qualifiers: Hypertension type: essential hypertension Qualified Code(s): I10 - Essential (primary) hypertension (4) HLD (hyperlipidemia) Current Visit: No Status: Chronic Assessment and plan: Clinically stable. We will continue home regimen and follow. Qualifiers: Hyperlipidemia type: pure hypercholesterolemia Qualified Code(s): E78.00 - Pure hypercholesterolemia, unspecified; E78.0 - Pure hypercholesterolemia (5) Partial seizure disorder Current Visit: No Status: Chronic Assessment and plan: No reported seizures, no evidence of problems, currently. (6) Parkinsonism Current Visit: Yes Status: Acute Assessment and plan: Clinically stable. This is mild, clinically.. This is no change from baseline. Qualifiers: Parkinsonism type: unspecified Qualified Code(s): G20 - Parkinson's disease (7) Hypothyroidism Current Visit: Yes Status: Acute Assessment and plan: Clinically stable. We will continue home regimen and follow. Qualifiers: Hypothyroidism type: unspecified Qualified Code(s): E03.9 - Hypothyroidism , unspecified (8) Slow transit constipation Current Visit: Yes Status: Acute Assessment and plan: We will continue to support and follow. - Subjective Interval history: Patient with no acute complaints. She moved her bowels yesterday but only once but these were loose. Denies urinary problems. Told nursing that I told her she did not have to get out of bed this morning. Rather, I told her that therapy would try to see her later in the day so that her morning nausea would be less. Home-going plans per boyfriend are to develop a ramp and arrange therapy, at home. Patient has no complaint of chest discomfort, dyspnea, orthopnea, palpitations, nausea or vomiting, constipation or diarrhea, other changes in bowel habits, difficulty with urination, rash or itching, or other new complaints, except as mentioned above. Review of systems is otherwise negative. - Constitutional Vitals: Temp Pulse Resp BP Pulse Ox 98.0 F 74 16 156/86 97 03/11/18 07:30 03/11/18 07:30 03/11/18 07:30 03/11/18 07:30 03/11/18 07:30 General appearance: Present: cooperative, pleasant, answers questions appropriately Exam: Examination: (Except as mentioned above): General: In no apparent distress. Alert and oriented 3. Nondiaphoretic. Head: Atraumatic and normocephalic. Respiratory: No use of accessory muscles. Lungs are clear throughout. Normal airflow. Cardiovascular: Regular rate and rhythm without murmur appreciated. Abdomen: Bowel sounds are normal. No hepatosplenomegaly mass or tenderness appreciated. Obese and therefore difficult to palpate deeply. Extremities: No cyanosis clubbing or edema. Skin: Warm and non-diaphoretic with no new lesions noted. Internal Medicine: Result - Labs CBC & Chem 7: 03/07/18 06:00 03/07/18 06:00 - VTE Documentation of Mechanical Device: Graduated compression elastic hosiery Consult Discharge Plan - Plan Referrals: Quiana Mendez MD [Primary Care Provider] -
[2018-03-12] MEDS: *HR* Enoxaparin 40 MG/0.4 ML SYRINGE SQ SCH (06:09)
[2018-03-12] MEDS: Insulin LISPRO 300 UNITS/3 ML VIAL SQ SCH ×4 (08:09→19:51)
[2018-03-12] MEDS: levETIRAcetam 250 MG TABLET PO SCH ×2 (08:09→21:00)
[2018-03-12] MEDS: Insulin NPH/REG 70/30 100 UNIT/ML (x5UNIT) SQ SCH ×2 (08:09→16:52)
[2018-03-12] MEDS: *HR* Metformin 500 MG TABLET PO SCH ×2 (08:09→17:43)
[2018-03-12] MEDS: Aspirin 81 MG TAB.CHEW PO SCH (08:09)
[2018-03-12] MEDS: Carbidopa/Levodopa 25/100 TABLET PO SCH ×2 (08:10→19:50)
[2018-03-12] MEDS: Sennosides 8.6 MG TABLET PO SCH ×2 (08:10→19:50)
[2018-03-12] MEDS: amLODIPine 5 MG TABLET PO SCH (08:10)
[2018-03-12] MEDS ORDERED: Fluconazole 100 MG TABLET PO SCH (09:00)
--- NOTE | 2018-03-12 10:24 | Internal Med Progress Note ---
Date of Encounter: 03/12/18 Time of Encounter: 10:22 - Assessment and plan (1) Cerebrovascular accident Current Visit: Yes Status: Acute Assessment and plan: stable and improving Qualifiers: CVA mechanism: unspecified Qualified Code(s): I63.9 - Cerebral infarction, unspecified (2) Diabetes Current Visit: Yes Status: Chronic Assessment and plan: blood sugars still hihg most of the time . Attempted to decrease leads to low blood sugars. last HBA1c was 8 recheck again .She might benefit with changing and lispro instead of 70/30 will followup after HBA1c it to [place] Qualifiers: Diabetes mellitus type: type 2 Diabetes mellitus retirement insulin use: with retirement use Diabetes mellitus complication detail: with autonomic neuropathy Qualified Code(s): E11.43 - Type 2 diabetes mellitus with diabetic autonomic (poly)neuropathy; Z79.4 - manager terminal (current) use of insulin (3) HTN (hypertension) Current Visit: Yes Status: Chronic Assessment and plan: stable no new change Qualifiers: Hypertension type: essential hypertension Qualified Code(s): I10 - Essential (primary) hypertension - Subjective Interval history: Cross coverage no acute issues at the present time Blood sugars still high one episode of low blood sugar again last night . Mno new complains She feels that he speech is back to normal weakness right side improving - Constitutional Vitals: Temp Pulse Resp BP Pulse Ox 98.5 F 78 15 132/65 96 03/12/18 07:00 03/12/18 07:00 03/12/18 07:00 03/12/18 07:00 03/12/18 07:00 General appearance: Present: cooperative, A&O X 3, pleasant, answers questions appropriately - Head Head exam: Present: atraumatic - Eye Eye exam: Present: EOMI, PERRL. Absent: periorbital swelling, periorbital tenderness, conjuntiva pink, sclera anicteric - Neck Neck exam general surgery: Present: supple. Absent: tenderness, nuchal rigidity - Respiratory Respiratory exam: Present: CTAB. Absent: chest wall tenderness, decreased breath sounds, respiratory distress, rhonchi, stridor, wheezes, tachypnea - Cardiovascular Cardiovascular exam: Present: RRR, +S1, +S2. Absent: irregular rhythm, JVD, rubs - GI/Abdominal GI/Abdominal exam: Present: normal bowel sounds, soft. Absent: distended, guarding, rebound, rigid, tenderness, no peritoneal signs - Extremities Exam Extremities exam: Absent: pedal edema, tenderness - Neurological Exam Neurological exam: Present: alert, CN II-XII intact, oriented X3. Absent: facial droop, speech deficit Additional comments: didnt notice any speech deficit today . weakens on right side lower more then upper but improving Internal Medicine: Result - Labs CBC & Chem 7: 03/07/18 06:00 03/07/18 06:00 - VTE Documentation of Mechanical Device: Graduated compression elastic hosiery Consult Discharge Plan - Plan Referrals: Quiana Mendez MD [Primary Care Provider] -
[2018-03-12] MEDS: Melatonin 3 MG TABLET PO PRN (19:50)
[2018-03-13] MEDS: *HR* Enoxaparin 40 MG/0.4 ML SYRINGE SQ SCH (04:36)
[2018-03-13] MEDS: Insulin LISPRO 300 UNITS/3 ML VIAL SQ SCH ×4 (08:32→20:12)
[2018-03-13] MEDS: Aspirin 81 MG TAB.CHEW PO SCH (08:32)
[2018-03-13] MEDS: *HR* Metformin 500 MG TABLET PO SCH ×2 (08:32→17:09)
[2018-03-13] MEDS: levETIRAcetam 250 MG TABLET PO SCH ×2 (08:32→20:11)
[2018-03-13] MEDS: Carbidopa/Levodopa 25/100 TABLET PO SCH ×2 (08:33→20:11)
[2018-03-13] MEDS: Insulin NPH/REG 70/30 100 UNIT/ML (x5UNIT) SQ SCH ×2 (08:33→17:09)
[2018-03-13] MEDS: amLODIPine 5 MG TABLET PO SCH (08:33)
[2018-03-13] MEDS: Sennosides 8.6 MG TABLET PO SCH ×2 (08:33→20:12)
--- NOTE | 2018-03-13 11:27 | Internal Med Progress Note ---
Date of Encounter: 03/13/18 Time of Encounter: 11:25 - Assessment and plan (1) Cerebrovascular accident Current Visit: Yes Status: Acute Assessment and plan: stable and improving Qualifiers: CVA mechanism: unspecified Qualified Code(s): I63.9 - Cerebral infarction, unspecified (2) Diabetes Current Visit: Yes Status: Chronic Assessment and plan: her blood sugars are labile. On sliding scale . Recommend eithr trying lantus and lispro instead of 70/30 or if insurance doesn't approve . Add sitagliptin Qualifiers: Diabetes mellitus type: type 2 Diabetes mellitus half-way insulin use: with local intermodal truck driver use Diabetes mellitus complication detail: with autonomic neuropathy Qualified Code(s): E11.43 - Type 2 diabetes mellitus with diabetic autonomic (poly)neuropathy; Z79.4 - termite control technician (current) use of insulin (3) HTN (hypertension) Current Visit: Yes Status: Chronic Assessment and plan: stable no new change Qualifiers: Hypertension type: essential hypertension Qualified Code(s): I10 - Essential (primary) hypertension - Subjective Interval history: Cross coverage she wants to go home . Blood sugars are still labile .She states that her insurance didn't approve her lantus . no other issues - Constitutional Vitals: Temp Pulse Resp BP Pulse Ox 98.1 F 77 16 133/73 96 03/13/18 08:30 03/13/18 08:30 03/13/18 08:30 03/13/18 08:30 03/13/18 08:30 General appearance: Present: cooperative, A&O X 3, pleasant, answers questions appropriately - Head Head exam: Present: atraumatic - Eye Eye exam: Present: EOMI, PERRL. Absent: periorbital swelling, periorbital tenderness - Neck Neck exam general surgery: Present: supple. Absent: tenderness, nuchal rigidity - Respiratory Respiratory exam: Present: CTAB. Absent: respiratory distress, rhonchi, stridor , wheezes, tachypnea - Cardiovascular Cardiovascular exam: Present: RRR, +S1, +S2. Absent: irregular rhythm, JVD, systolic murmur - GI/Abdominal GI/Abdominal exam: Present: normal bowel sounds, pulsatile mass, soft. Absent: distended, firm, guarding, rebound, rigid - Extremities Exam Extremities exam: Absent: pedal edema, tenderness - Neurological Exam Neurological exam: Present: alert, CN II-XII intact, reflexes normal Additional comments: Right side still as before .Strength is improving slowly Arm much better then leg Internal Medicine: Result - Labs CBC & Chem 7: 03/07/18 06:00 03/07/18 06:00 - VTE Documentation of Mechanical Device: Graduated compression elastic hosiery Consult Discharge Plan - Plan Referrals: Quiana Mendez MD [Primary Care Provider] -
[2018-03-13] MEDS ORDERED: Insulin LISPRO 300 UNITS/3 ML VIAL SQ ONE (11:30)
[2018-03-13 18:19] LABS: Estimated Average Glucose 174 mg/dl; Hemoglobin A1C 7.7 %
[2018-03-13] MEDS: traMADol 50 MG TABLET PO PRN (20:11)
[2018-03-14] MEDS: *HR* Enoxaparin 40 MG/0.4 ML SYRINGE SQ SCH (05:22)
[2018-03-14 06:02] LABS: Basophils # 0.1 K/mcL (0.0-0.2); Basophils % 0.9 %; Eosinophils # 0.3 K/mcL (0.0-0.6); Eosinophils % 4.1 %; Hematocrit 30.2 % (35.3-44.9); Hemoglobin 10.1 g/dL (11.5-15.4); Immature Granulocytes % 0.5 % (0-4); Lymphocytes # 2.5 K/mcL (0.6-4.6); Lymphocytes % 38.6 %; Mean Corpuscular HGB Conc 33.4 g/dL (31.6-35.5); Mean Corpuscular Hemoglobin 29.3 pg (28.0-33.3); Mean Corpuscular Volume 87.5 fL (83.0-100.0); Mean Platelet Volume 10.6 fL (9.4-12.4); Monocytes # 0.5 K/mcL (0.0-1.3); Monocytes % 8.2 %; Neutrophils # 3.1 K/mcL (1.6-8.9); Platelet Count 172 K/mcL (140-400); Red Blood Count 3.45 M/mcL (3.82-4.97); Red Cell Distribution Width 13.2 % (11.5-14.5); Segmented Neutrophils % 47.7 %
[2018-03-14] MEDS: *HR* SitaGLIPtin 25 MG TABLET PO SCH (08:06)
[2018-03-14] MEDS: levETIRAcetam 250 MG TABLET PO SCH ×2 (08:06→20:17)
[2018-03-14] MEDS: *HR* Metformin 500 MG TABLET PO SCH ×2 (08:07→18:35)
[2018-03-14] MEDS: Aspirin 81 MG TAB.CHEW PO SCH (08:07)
[2018-03-14] MEDS: Carbidopa/Levodopa 25/100 TABLET PO SCH ×2 (08:07→20:17)
[2018-03-14] MEDS: Sennosides 8.6 MG TABLET PO SCH ×2 (08:08→20:17)
[2018-03-14] MEDS: amLODIPine 5 MG TABLET PO SCH (08:08)
[2018-03-14] MEDS: Insulin NPH/REG 70/30 100 UNIT/ML (x5UNIT) SQ SCH ×2 (08:08→18:35)
[2018-03-14] MEDS: Insulin LISPRO 300 UNITS/3 ML VIAL SQ SCH ×4 (08:09→20:18)
[2018-03-14 09:23] LABS: BUN/Creatinine Ratio 27 (6-26); Blood Urea Nitrogen 19 mg/dL (8-23); Calcium 9.2 mg/dL (8.6-10.3); Carbon Dioxide 25 mEq/L (23-29); Chloride 105 mEq/L (98-107); Glucose 143 mg/dL (70-105); Osmolality,Calculated 291 (280-300); Potassium 3.9 mEq/L (3.5-5.1); Sodium 138 mEq/L (136-145); eGFR For African Americans > 60 (> 60); eGFR For Non-African Americans > 60 (> 60)
--- NOTE | 2018-03-14 10:02 | Internal Med Progress Note ---
Date of Encounter: 03/14/18 Time of Encounter: 09:51 - Assessment and plan (1) Cerebrovascular accident Current Visit: Yes Status: Acute Assessment and plan: We will continue to investigate discharge planning, as per patient request. Discharge today or tomorrow. Qualifiers: CVA mechanism: unspecified Qualified Code(s): I63.9 - Cerebral infarction, unspecified (2) Diabetes Current Visit: Yes Status: Chronic Assessment and plan: Clinically stable. We will continue home regimen and follow. Qualifiers: Diabetes mellitus type: type 2 Diabetes mellitus custodial insulin use: with license issuer use Diabetes mellitus complication detail: with autonomic neuropathy Qualified Code(s): E11.43 - Type 2 diabetes mellitus with diabetic autonomic (poly)neuropathy; Z79.4 - senior care (current) use of insulin (3) HTN (hypertension) Current Visit: Yes Status: Chronic Assessment and plan: Seems to be stable and doing relatively better. Qualifiers: Hypertension type: essential hypertension Qualified Code(s): I10 - Essential (primary) hypertension (4) HLD (hyperlipidemia) Current Visit: No Status: Chronic Assessment and plan: Clinically stable. We will continue home regimen and follow. Qualifiers: Hyperlipidemia type: pure hypercholesterolemia Qualified Code(s): E78.00 - Pure hypercholesterolemia, unspecified; E78.0 - Pure hypercholesterolemia (5) Partial seizure disorder Current Visit: No Status: Chronic Assessment and plan: No seizures reported. Clinically stable. (6) Parkinsonism Current Visit: Yes Status: Acute Assessment and plan: Clinically stable. This is mild, clinically. This is no change from baseline. Qualifiers: Parkinsonism type: unspecified Qualified Code(s): G20 - Parkinson's disease (7) Hypothyroidism Current Visit: Yes Status: Acute Assessment and plan: Clinically stable. We will continue home regimen and follow. Qualifiers: Hypothyroidism type: unspecified Qualified Code(s): E03.9 - Hypothyroidism , unspecified (8) Slow transit constipation Current Visit: Yes Status: Acute - Subjective Interval history: She wants to go home today or tomorrow. She states that her ramp is completed and she is ready to go. She is very persistent in her home-going requests. She had 2 bowel movements yesterday which were relatively loose but not diarrhea. She states that one of them was incontinent. Patient has no complaint of chest discomfort, dyspnea, orthopnea, palpitations, nausea or vomiting, constipation or diarrhea, other changes in bowel habits, difficulty with urination, rash or itching, or other new complaints, except as mentioned above. Review of systems is otherwise negative. - Constitutional Vitals: Temp Pulse Resp BP Pulse Ox 97.8 F 67 18 158/78 96 03/14/18 07:34 03/14/18 07:34 03/14/18 07:34 03/14/18 07:34 03/14/18 07:34 General appearance: Present: cooperative, pleasant, answers questions appropriately Exam: Examination: (Except as mentioned above): General: In no apparent distress. Alert and oriented 3. Nondiaphoretic. Head: Atraumatic and normocephalic. Respiratory: No use of accessory muscles. Lungs are clear throughout. Normal airflow. Cardiovascular: Regular rate and rhythm without murmur appreciated. Abdomen: Bowel sounds are normal. No hepatosplenomegaly mass or tenderness appreciated. Obese and therefore difficult to palpate deeply.Patient is examined upright in chair and this also limits exam. Extremities: No cyanosis clubbing or edema. Skin: Warm and non-diaphoretic with no new lesions noted. Internal Medicine: Result - Labs CBC & Chem 7: 03/14/18 05:25 03/14/18 05:25 Labs: Short CBC 03/14/18 Range/Units 05:25 WBC 6.6 (4.3-11.1) K/mcL Hgb 10.1 L (11.5-15.4) g/dL Hct 30.2 L (35.3-44.9) % Plt Count 172 (140-400) K/mcL Neutrophils # 3.1 (1.6-8.9) K/mcL BMP 03/14/18 05:25 Sodium 138 Potassium 3.9 Chloride 105 Carbon Dioxide 25 BUN 19 Creatinine 0.71 Glucose 143 H Calcium 9.2 - VTE Documentation of Mechanical Device: Graduated compression elastic hosiery Consult Discharge Plan - Plan Referrals: Quiana Mendez MD [Primary Care Provider] -
--- NOTE | 2018-03-14 17:43 | Physical Med Progress Note ---
Date of Encounter: 03/14/18 Time of Encounter: 15:30 Assessment and Plan (1) Cerebrovascular accident Current Visit: Yes Status: Acute Assessment and plan: Good progress. Will still need help at home. Boyfriend very supportive. Qualifiers: CVA mechanism: unspecified Qualified Code(s): I63.9 - Cerebral infarction, unspecified Physical Medicine-PN: Subj Interval history: I want to go home. - Constitutional Vitals: Vital Signs Temp Pulse Resp BP Pulse Ox 03/14/18 07:34 97.8 F 67 18 158/78 96 03/13/18 19:13 98.0 F 73 17 132/66 99 Intake and Output 03/14/18 03/14/18 03/14/18 07:59 15:59 23:59 Intake Total 200 / 200 Balance 200 / 200 Intake: Oral 200 / 200 Other: Meal Breakfast Percent of Meal Consumed 100% # Voids 1 Weight 78.1 kg Blood Glucose* 172 259 70 Patient Weight 03/14/18 23:59 Weight 78.1 kg General appearance: average body habitus, no acute distress - Head Head exam: Present: atraumatic, normocephalic - Eye Eye exam: Present: EOMI - ENT ENT exam: Present: mucous membranes moist - Extremities Exam Extremities exam: Present: full ROM Additional comments: Strength 4/5. Poor coordination. Poor balance. - Psychiatric Psychiatric exam: Present: normal affect, normal mood - Skin Skin exam: Present: intact Physical Medicine-PN: Obj Data - Labs CBC & Chem 7: 03/14/18 05:25 03/14/18 05:25 Labs: Laboratory Results - last 24 hr 03/13/18 03/13/18 03/13/18 04:35 07:49 16:06 WBC RBC Hgb Hct MCV MCH MCHC RDW Plt Count MPV Immature Gran % Seg Neutrophils % Lymphocytes % Monocytes % Eosinophils % Basophils % Neutrophils # Lymphocytes # Monocytes # Eosinophils # Basophils # Sodium Potassium Chloride Carbon Dioxide BUN Creatinine Est GFR ( Amer) Est GFR (Non-Af Amer) BUN/Creatinine Ratio Glucose POC Glucose 263 H 184 H Est Mean Plasma Glucose 174 Hemoglobin A1c 7.7 H Calculated Osmolality Calcium 03/13/18 03/14/18 03/14/18 20:06 05:25 05:25 WBC 6.6 RBC 3.45 L Hgb 10.1 L Hct 30.2 L MCV 87.5 MCH 29.3 MCHC 33.4 RDW 13.2 Plt Count 172 MPV 10.6 Immature Gran % 0.5 Seg Neutrophils % 47.7 Lymphocytes % 38.6 Monocytes % 8.2 Eosinophils % 4.1 Basophils % 0.9 Neutrophils # 3.1 Lymphocytes # 2.5 Monocytes # 0.5 Eosinophils # 0.3 Basophils # 0.1 Sodium 138 Potassium 3.9 Chloride 105 Carbon Dioxide 25 BUN 19 Creatinine 0.71 Est GFR ( Amer) > 60 Est GFR (Non-Af Amer) > 60 BUN/Creatinine Ratio 27 H Glucose 143 H POC Glucose 221 H Est Mean Plasma Glucose Hemoglobin A1c Calculated Osmolality 291 Calcium 9.2 03/14/18 03/14/18 07:03 11:06 WBC RBC Hgb Hct MCV MCH MCHC RDW Plt Count MPV Immature Gran % Seg Neutrophils % Lymphocytes % Monocytes % Eosinophils % Basophils % Neutrophils # Lymphocytes # Monocytes # Eosinophils # Basophils # Sodium Potassium Chloride Carbon Dioxide BUN Creatinine Est GFR ( Amer) Est GFR (Non-Af Amer) BUN/Creatinine Ratio Glucose POC Glucose 172 H 259 H Est Mean Plasma Glucose Hemoglobin A1c Calculated Osmolality Calcium Anemia. - VTE Documentation of Mechanical Device: Graduated compression elastic hosiery Consult Discharge Plan - Plan Referrals: Quiana Mendez MD [Primary Care Provider] -
[2018-03-14] MEDS: traMADol 50 MG TABLET PO PRN (20:17)
[2018-03-15] MEDS: *HR* Enoxaparin 40 MG/0.4 ML SYRINGE SQ SCH (04:27)
[2018-03-15 07:36] VITALS: BP 140/70
[2018-03-15] MEDS: Insulin NPH/REG 70/30 100 UNIT/ML (x5UNIT) SQ SCH (08:30)
[2018-03-15] MEDS: *HR* Metformin 500 MG TABLET PO SCH (08:31)
[2018-03-15] MEDS: amLODIPine 5 MG TABLET PO SCH (08:31)
[2018-03-15] MEDS: Sennosides 8.6 MG TABLET PO SCH (08:31)
[2018-03-15] MEDS: Aspirin 81 MG TAB.CHEW PO SCH (08:31)
[2018-03-15] MEDS: Carbidopa/Levodopa 25/100 TABLET PO SCH (08:31)
[2018-03-15] MEDS: levETIRAcetam 250 MG TABLET PO SCH (08:31)
[2018-03-15] MEDS: Insulin LISPRO 300 UNITS/3 ML VIAL SQ SCH ×2 (08:32→11:42)
[2018-03-15] MEDS: *HR* SitaGLIPtin 25 MG TABLET PO SCH (08:32)
--- NOTE | 2018-03-15 09:35 | Physician Discharge Referral ---
Home Health/Hosp Referral Info Transfer to: Home Health Provider in Charge Post Discharge: PCP - Diagnosis (1) Cerebrovascular accident Priority: Primary Status: Acute (2) Diabetes Priority: Secondary Status: Chronic (3) HTN (hypertension) Priority: Secondary Status: Chronic (4) Nausea Priority: Secondary Status: Resolved - Respiratory Orders Smoking Cessation: Smoking cessation has been advised. For more information, call the [place] Tobacco Quit Line at 6-643-EALQ-NOW. - Diet/Nutrition Diet/Nutrition Orders: No Concentrated Sweets - Activity Activity Orders: Chair - Services Needed Following services are medically necessary services: Nursing, Physical Therapy, Occupational Therapy - Transfer Medications Home Medications: Carvedilol 12.5 mg PO BID 09/14/15 [History] Clopidogrel Bisulfate [Plavix] 75 mg PO DAILY 09/14/15 [History] Losartan [Cozaar] 100 mg PO DAILY 09/14/15 [History] Pregabalin [Lyrica] 75 mg PO DAILY 09/14/15 [History] Simvastatin [Zocor] 40 mg PO HS 09/14/15 [History] metFORMIN [Glucophage] 1,000 mg PO BIDWM 09/14/15 [History] Aspirin 81 mg PO DAILY tab.chew 11/06/15 [Rx] Insulin NPH Hum/Reg Insulin Hm [Novolin 70-30 100 Unit/ml Vial] 45 unit SQ QPM 03/13/17 [History] Insulin NPH Hum/Reg Insulin Hm [Novolin 70-30 100 Unit/ml Vial] 55 unit SQ QAM 03/13/17 [History] LevETIRAcetam [Keppra] 1,000 mg PO BID 11/25/17 [History] Carbidopa/Levodopa [Carbidopa-Levo ER 25-100 Tab] 1 tab PO BID 02/14/18 [History ] Levothyroxine [Synthroid] 88 mcg PO 0630 #0 tablet 02/19/18 [Rx] Omeprazole [PriLOSEC] 20 mg PO 0630 #30 capsule. 02/19/18 [Rx] Sennosides/Docusate Sodium [Senna Plus] 1 each PO BID PRN #20 tablet 02/19/18 [ Rx] amLODIPine [Norvasc] 10 mg PO DAILY #30 tablet 02/19/18 [Rx] Allergies/Adverse Reactions: 3 Allergy/AdvReac Type Severity Reaction Status Date / Time levofloxacin [From Levaquin] AdvReac Nausea Verified 02/14/18 22:19 Certification: Further, I certify that my clinical findings support that this patient is homebound (i.e. absences from home require considerable and taxing effort and are for medical reasons or latter day services or infrequently or short duration when for other reasons) because: Homebound Reason: Patient requires assistance of a person or device to safely leave home, Leaving home requires considerable and taxing effort due to condition Attestation: My signature below is to certify that this patient is under my care and that I, or nurse practitioner, or a physician's photo studio assistant working with me, has a face-to -face encounter with this patient.
--- NOTE | 2018-03-15 09:43 | Discharge Summary ---
Orders not resulted at time of discharge: Pending orders 03/21/18 04:00 BMP [Basic Metabolic Panel] MO CBC [Complete Blood Count] [HEME] MO 03/28/18 04:00 BMP [Basic Metabolic Panel] MO CBC [Complete Blood Count] [HEME] MO 04/04/18 04:00 BMP [Basic Metabolic Panel] MO CBC [Complete Blood Count] [HEME] MO 04/11/18 04:00 BMP [Basic Metabolic Panel] MO CBC [Complete Blood Count] [HEME] MO 04/18/18 04:00 BMP [Basic Metabolic Panel] MO CBC [Complete Blood Count] [HEME] MO 04/25/18 04:00 BMP [Basic Metabolic Panel] MO CBC [Complete Blood Count] [HEME] MO 05/02/18 04:00 BMP [Basic Metabolic Panel] MO CBC [Complete Blood Count] [HEME] MO Date of Encounter: 03/15/18 Time of Encounter: 09:36 - Discharge Diagnosis (1) Cerebrovascular accident Priority: Primary Status: Acute Comments: Making good progress. Discharge to home today with home health therapy. Will continue PT\OT and nursing. Follow up with neurologist and PCP as scheduled. Qualifiers: CVA mechanism: unspecified Qualified Code(s): I63.9 - Cerebral infarction, unspecified (2) Diabetes Priority: Secondary Status: Chronic Comments: Stable with current medications. Continue to monitor fingerstick blood sugar. 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 Continue to monitor blood pressure. Follow up with PCP. Qualifiers: Hypertension type: essential hypertension Qualified Code(s): I10 - Essential (primary) hypertension (4) Nausea Priority: Secondary Status: Resolved Comments: No complaints today. Hospital course: Ms. Sharif is a 67 year old female discharging to home with boyfriend. Will continue home health PT\OT and nursing. Will follow up with PCP. Progressing well after CVA. Denies any issues or concerns at this time. Discharge discussed with: patient, nurse - Time Spent with Patient Total time spent providing and/or coordinating discharge services: Less than 30 minutes - Discharge Medications Home Medications: Carvedilol 12.5 mg PO BID 09/14/15 [History] Clopidogrel Bisulfate [Plavix] 75 mg PO DAILY 09/14/15 [History] Losartan [Cozaar] 100 mg PO DAILY 09/14/15 [History] Pregabalin [Lyrica] 75 mg PO DAILY 09/14/15 [History] Simvastatin [Zocor] 40 mg PO HS 09/14/15 [History] metFORMIN [Glucophage] 1,000 mg PO BIDWM 09/14/15 [History] Aspirin 81 mg PO DAILY tab.chew 11/06/15 [Rx] Insulin NPH Hum/Reg Insulin Hm [Novolin 70-30 100 Unit/ml Vial] 55 unit SQ QAM 03/13/17 [History] LevETIRAcetam [Keppra] 1,000 mg PO BID 11/25/17 [History] Carbidopa/Levodopa [Carbidopa-Levo ER 25-100 Tab] 1 tab PO BID 02/14/18 [History ] Levothyroxine [Synthroid] 88 mcg PO 0630 #0 tablet 02/19/18 [Rx] Omeprazole [PriLOSEC] 20 mg PO 0630 #30 capsule. 02/19/18 [Rx] Sennosides/Docusate Sodium [Senna Plus] 1 each PO BID PRN #20 tablet 02/19/18 [ Rx] amLODIPine [Norvasc] 10 mg PO DAILY #30 tablet 02/19/18 [Rx] Docusate [Colace] 100 mg PO BID capsule 03/15/18 [Rx] Insulin LISPRO [HumaLOG] 0 units SQ HS vial 03/15/18 [Rx] Insulin LISPRO [HumaLOG] 0 units SQ TIDAC vial 03/15/18 [Rx] Insulin NPH/REG 70/30 (HUMAN) [Humulin 70/30 Vial] 40 unit SQ 1700 [id number] 02/25 [Rx] Ondansetron ODT [Zofran ODT] 4 mg SL Q8HR PRN tab.rapdis 03/15/18 [Rx] Polyethylene Glycol 3350 [MiraLAX] 17 gm PO DAILY PRN powd.pack 03/15/18 [Rx] Preparation H Ointment 1 appl TP Q4HR PRN tube 03/15/18 [Rx] SitaGLIPtin [Januvia] 50 mg PO DAILY tablet 03/15/18 [Rx] Allergies/Adverse Reactions: 3 Allergy/AdvReac Type Severity Reaction Status Date / Time levofloxacin [From Levaquin] AdvReac Nausea Verified 02/14/18 22:19 Date of admission: 02/19/18 16:56 Primary care physician: Quiana Mendez Consults: 02/19/18 17:53 Consult to Occupational Therapy [CONS] Routine Comment: eval Reason for Consult: eval Does patient have active BEDREST order?: No Is patient medically & hemodynamically stable?: Yes Consult to Physical Therapy [CONS] Routine Comment: eval Reason for Consult: eval Does patient have active BEDREST order?: No Is patient medically & hemodynamically stable?: Yes Consult to Oven Operator Automatic [CONS] Routine Reason for SW Consult: d/c planning 02/19/18 17:59 Consult to Physical Medicine/Rehab [CONS] Routine Reason for Consult: Please evaluate and manage therapies' guidelines and recommend pathway to reconditioning. Call Completed: Yes 02/21/18 13:17 Consult to Speech Therapy [CONS] Routine Comment: Evaluate, develop and implement POC Reason for Consult: CVA Call Completed: Yes 03/08/18 15:18 Consult to Recreational Therapy [CONS] Routine Comment: Discharging clinician: Damien Lopez Anticipated date of discharge: 03/15/18 - Constitutional Vitals: Temp Pulse Resp BP Pulse Ox 98.1 F 81 16 140/70 96 03/15/18 06:00 03/15/18 06:00 03/15/18 06:00 03/15/18 06:00 03/15/18 06:00 General appearance: Present: cooperative, A&O X 3, pleasant, answers questions appropriately - Head Head exam: Present: atraumatic, normocephalic - Eye Eye exam: Present: PERRL, conjuntiva pink, sclera anicteric Pupils: Present: PERRL - Neck Neck exam general surgery: Present: supple, trachea midline. Absent: lymphadenopathy - Respiratory Respiratory exam: Present: CTAB. Absent: accessory muscle use, rales, rhonchi, wheezes - Cardiovascular Cardiovascular exam: Present: RRR, +S1, +S2. Absent: diastolic murmur, gallop, rubs, systolic murmur - GI/Abdominal GI/Abdominal exam: Present: normal bowel sounds, soft, no peritoneal signs. Absent: distended, tenderness - Extremities Exam Extremities exam: Present: warm, radial pulses palpable and symmetrical. Absent : calf tenderness, cyanotic, pedal edema - Neurological Exam Neurological exam: Present: CN II-XII intact, oriented X3, no focal deficits. Absent: pronater drift, facial droop, speech deficit - Skin Skin exam: Present: dry, intact - Patient Status Disposition: Home Health Service Condition: Good Functional capacity at discharge: wheelchair bound Overall status at discharge: patient is progressing back to baseline - Discharge Instructions Follow Up With: Quiana Mendez MD [Primary Care Provider] - - Diet and Activity Activity: as per physical therapy Diet: diabetic diet - VTE Documentation of Mechanical Device: Graduated compression elastic hosiery
== END 2018-03-15 16:00 | disposition home health service (06) | DRG 57 ==
LOC: INPGRE 02-19 16:56